=== PATIENT | female | born 1960 ===

== ENCOUNTER 2024-09-26 09:17 | Outpatient (AMB) | payer OTHER, SELFPAY ==
--- NOTE | 2024-09-26 09:32 | A.OFFVIS_ITS ---
Vital Signs 3 09/26/24 09:34 Height 5 ft 3 in Weight 177 lb 0.499 oz BMI 31.4 BP 136/84 Blood Pressure Location Lt brachial Position Sitting Pulse 65 Pulse Source Pulse Oximeter Pulse Oximetry (%) 98 Oxygen Delivery Method Room Air Intake Visit Reasons: Thyroid nodule Intake Note: New patient present today for Thyroid Nodule. Hand Wood Sander Required: No Accompanied by: Self / Same As Patient Allergies Sulfa (Sulfonamide Antibiotics) Allergy (Unknown, Verified 09/26/24 09:35) Rash Medication List - Last Reconciled 09/26/24 by Faina Flowers MD cetirizine (Zyrtec) 10 mg PO DAILY PRN doxepin 50 mg PO BEDTIME fluocinonide 0.05% 1 appl topical BID hydroxyzine HCl 25 mg PO BID PRN metoprolol succinate ER 50 mg PO DAILY tacrolimus 0.1% 1 appl topical BID triamcinolone acetonide 0.1% 1 appl topical DAILY HPI Comments Details: 64-year-old female here today for initial evaluation of right-sided thyroid nodule. 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 No prior history of thyroid disease or disorders . Patient currently denies heat or cold intolerance, diarrhea or constipation, hair loss, palpitation, anxiety, weight changes, mood changes, low energy, changes in appearance of eyes or vision changes, tremors, increased diaphoresis or dry skin. ? Patient denies any difficulty swallowing, pain on swallowing or voice changes or difficulty breathing. Patient denies any history of childhood neck radiation. Denies having ever used lithium, amiodarone or biotin supplements. Patient denies any family history of thyroid cancer or thyroid disease. Physical exam General: sitting comfortably in no acute distress HEENT: normocephalic/atraumatic, EOM intact, moist oral mucosa Neck: supple, symmetrical, no thyromegaly , no dorsocervical or supraclavicular fat pads Cardiac: normal heart sounds Pulm: normal breath sounds B/L, no added breath sounds Abd: not distended, no tenderness Extremities: no edema, no signs of myxedema ON LICENSE OF [facility] Medical History (Updated 09/26/24 @ 10:11 by Faina Flowers MD) Thyroid nodule Surgical History Hx of knee surgery Family History Mother Diabetes Father Liver cancer Social History Alcohol intake: never Patient Tobacco Use Status: Never used Tobacco Physical Exam Vital Signs: Last Vital Signs Pulse 65 09/26/24 09:34 BP 136/84 09/26/24 09:34 Pulse Ox 98 09/26/24 09:34 Oxygen Delivery Method Room Air 09/26/24 09:34 BMI result Body Mass Index 31.4 Assessment & Plan Assessment & Plan (1) Thyroid nodule: Code(s): E04.1 - Nontoxic single thyroid nodule Category: Medical Plan: 64-year-old female with no family history of thyroid cancer, with no personal history of head or neck radiation who had a PET-CT in July 2024 for 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 She does not have a dedicated ultrasound thyroid. No compressive symptoms. No TFTs in the chart. No prior history of thyroid disease or disorders . I explained that it is common to have thyroid nodules. About 95% of the time these nodules are benign. However if the nodule is > 1 cm in size or suspicious on ultrasound then a fine need aspiration biopsy is recommended. At this time I would like to get a dedicated thyroid ultrasound as well as thyroid function tests. Focal FDG PET uptake within a sonographically confirmed thyroid nodule conveys and increased risk of thyroid cancer and FNA is recommended for those nodules greater than 1 cm. Diffuse uptake with clinical evidence of chronic lymphocytic thyroiditis does not require further imaging or FNA. Given focal incidental detection of increased uptake, which increases malignancy risk and ineffective nodule, we will 1st obtain dedicated thyroid imaging and plan for FNA depending on the size of the nodule. Plan: -ordered ultrasound of the thyroid -ordered TSH, free T4, total T3 -follow up in 5 weeks to discuss results Plan see above Orders: Orders 2 Thyroid Stimulating Hormone Today E04.1 - Nontoxic single thyroid nodule Free T4 (Free Thyroxine) Today E04.1 - Nontoxic single thyroid nodule Triiodothyronine T3 Total Today E04.1 - Nontoxic single thyroid nodule US thyroid Today E04.1 - Nontoxic single thyroid nodule Patient Instructions: Do blood work Do thyroid ultrasound , someone is going to call you to schedule this Follow up in 5 weeks to discuss results Coding Level of Care Code New Pt Level 4 (67308) Diagnoses Thyroid nodule E04.1
[2024-09-26 09:34] VITALS: BP 136/84; PULSE 65; O2SAT 98; BMI 31.4
--- OUTSIDE RECORDS SUMMARY | 2024-09-26 10:54 | XMS_ITS | Encounter Summary ---
Author Organization [facility] Address [address] [place] [address] Care Team Providers Care Certified Medical Assistant Name Role Phone Unavailable Primary Care Provider Unavailabl e Reason for Visit * Reason Onset Date Comments Prior Authorization 09/03/2024 Encounter Details Date Type Department Care Team (Late st Contact Info) Description 09/03/2024 Telephone [facility] 4th Floor [address] [facility], [place] [address] Analog Device Designer: Ana Laura Garrett Prior Authorization Social History Tobacco Use Types Packs/Day Years Used Date Smoking Tobacco: Never Assessed Comments Unknown Sex and Gender Information Value Date Recorded Sex Assigned at Female 05/21/2024 10:30 AM EST Legal Sex Female 2:04 PM EDT Gender Identity Female 05/21/2024 10:30 AM EST Sexual Orientation Choose not to disclose 2023 10:30 AM EST Sexual Orientation Straight 05/21/2024 10 :30 AM EST documented as of this encounter Miscellaneous Notes * Telephone Encounter - Jennie Holloway CPhT - 09/09/2024 3:21 PM EDT Images from the original note were not included. Prior Authorization Medication name: Acitretin 25 mg Capsule PA Status: Approved Effective dates: 07-03-2024 through 09-09-2025 PA Case ID: N/A 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 Card has been flipped to In Progress-PA Requested. ? documented in this encounter Plan of Treatment Upcoming Encounters Date Type Department Care Team (Late st Contact Info) Description 10/22/2024 1:00 PM EDT Office Visit [facility] [address]th [address] [place] [address], [place] [phone] Analog Device Designer: Jose Etienne MD [address] [place] [phone] documented as of this encounter Visit Diagnoses Not on filedocumented in this encounter
--- OUTSIDE RECORDS SUMMARY | 2024-09-26 10:54 | XMS_ITS | Encounter Summary ---
Author Organization [facility] Address [address] [place] [address] Care Team Providers Care Category Analyst Name Role Phone Unavailable Primary Care Provider Unavailabl e Reason for Visit * Reason Onset Date Comments PAC Form/Letter/Records Request-Caterina Encounter Details Date Type Department Care Team (Late st Contact Info) Description 09/02/2024 Telephone [facility] 4th [address] [place] [address], Fourth [place] [address] Casino Floor Supervisor: Sumaya Price Telephone Intake, Staff PAC Form/Letter/Records Request-Caterina Social History Tobacco Use Types Packs/Day Years [...] encounter Miscellaneous Notes * Telephone Encounter - Soila Seymour LPN - 09/06/2024 2:33 PM EST PET results faxed to [phone] as requested, to PCP Dr. Marks. * Telephone Encounter - Juliann Domingo - 09/02/2024 3:56 PM EST Images from the original note were not included. Can you resend please? PAC got a call from PCP office Result Care Coordination Result Notes Marquisearistides TIGIST Nation 07/17/2024 11:02 AM EST Back to Top PET scan results faxed successfully to pt PCP Dr. Dio Diaz . Called to Dr. Diaz office to relay provider message regarding PET scan results. , unable to relay message,on hold for an extended time of 18 minutes and got a voicemail. Voicemail left with call back number. * Telephone Encounter - Renetta Way - 09/02/2024 2:52 PM EST Pts pcp office calling to get notes from pt recent PET scan and would like notes faxed to [phone]. documented in this encounter Plan of Treatment Upcoming Encounters Date Type Department Care Team (Late st Contact Info) Description 10/22/2024 1:00 PM EDT Office Visit [facility] 4th Floor [address] [facility], [place] [address] Casino Floor Supervisor: Jose Etienne MD [address] [place] [phone] documented as of this encounter Visit Diagnoses Not on filedocumented in this encounter
--- OUTSIDE RECORDS SUMMARY | 2024-09-26 10:54 | XMS_ITS | Encounter Summary ---
Author Organization [facility] Address [address] [place] [address] Care Team Providers Care Track Superintendent Name Role Phone Emily Dio Primary Care Provider [phone] Encounter Details Date Type Department Care Team (Late st Contact Info) Description 07/17/2024 Telephone [facility] 4th Floor [address] [facility], [place] [address] Blocker And Sewer: Ligia Mock LPN Social History Tobacco Use Types Packs/Day Years [...] Telephone Encounter - Soila Seymour LPN - 08/30/2024 11:[address] Diaz form PCP status, Dr. Marks presently listed as PCP. * Telephone Encounter - Soila Seymour LPN - 08/29/2024 1:55 PM EST Call to Dr. Diaz office, Dr. Diaz is local derm, not PCP. PCP is Dr. Marks. Spoke with office staff at Dr. Marks's office, PET scan results faxed, message provided as aforementioned. * Telephone Encounter - Suzanne Carrizales LPN - 08/29/2024 1:53 PM EST Images from the original note were not included. Morgan Marks PCP - RTE Returned Since 01/09/2024 This is pt's PCP. I called and spoke to nurse there. They are unaware. Faxing to [phone] Dr. Diaz is a seo executive. * Telephone Encounter - Rachna Spain MD - 08/23/2024 8:16 AM EST [facility] -- following up on this--was anyone able to touch base with a staff member of her PCP office? * Telephone Encounter - Rachna Spain MD - 07/26/2024 7:38 AM EST [facility], could someone try PCP office again to relay the following message to the care teamof her PCP: Farida's PET scan is negative for internal involvement of her mycosis fungoides, however, did pick upon a thyroid nodule that needs further workup, and we are referring her to the primary care physician to direct further assessment/management of this. Please document as TE. Thanks! * Telephone Encounter - Ligia Nation LPN - 07/17/2024 10:54 AM EST PET scan results faxed successfully to pt PCP Dr. Dio Diaz . Called to Dr. iDaz office to relay provider message regarding PET scan results. , unable to relay message,on hold for an extended time of 18 minutes and got a voicemail. Voicemail left with call back number. notified. documented in this encounter Plan of Treatment Upcoming Encounters Date Type Department Care Team (Late st Contact Info) Description 10/22/2024 1:00 PM EDT Office Visit [facility] 4th Floor [address] [facility], [place] [address] Blocker And Sewer: Jose Etienne MD [address] [place] [address] documented as of this encounter Visit Diagnoses Not on filedocumented in this encounter Care Teams Track Superintendent Relationship Specialty Start Date End Date Emily Dio [address] [place] [address] PCP - General 12/20/23 08/29/24 documented as of this encounter
--- OUTSIDE RECORDS SUMMARY | 2024-09-26 10:55 | XMS_ITS | Encounter Summary ---
Author Organization [facility] Address [address] [place] [address] Care Team Providers Care Ops Analyst Name Role Phone Dio Diaz Primary Care Provider [phone] Encounter Details Date Type Department Care Team (Late st Contact Info) Description 02/26/2024 Lab Requisition [facility] [address] [place] [phone] Rachna Spain MD [address] [place] [address] [place] [address] Social History Tobacco Use Types Packs/Day Years [...] as of this encounter Miscellaneous Notes * Result Encounter Note - Rachna Spain MD - 03/06/2024 12:00 PM EDT Called and spoke with patient's daughter. Informed her that on internal review of prior biopsy obtained with [facility] dermatology, our pathologists agree with diagnosis of mycosis fungoides, and clinically we also agree with this diagnosis. Discussed routine labwork - order placed for CBC+diff, CMP, LDH, flow cytometry, HTLV-1/2 abs, to [facility]. Plan is to proceed with topical mechlorethamine 0.016 % gel + clobetasol as discussed previously, daughter has been in touch with specialty pharmacy andmed will be delivered Mar 12. Reminded on risk of teratogenicity if daughter or others are helping mom with applying cream, reminded to use gloves when applying and wash hands afterwards. All questions answered. They are not yet scheduled for follow-up, messaged ASR documented in this encounter Plan of Treatment Upcoming Encounters Date Type Department Care Team (Late st Contact Info) Description 10/22/2024 1:00 PM EDT Office Visit [facility] 4th Floor [address] [facility], [place] [address] Social Service Worker: Jose Etienne MD [address] [place] [phone] documented as of this encounter Procedures * Due to [facility] law, this organization might not be sharing negative HIV tests. Procedure Name Priority Date/Time Associated Diagnosis Comments TISSUE EXAM Routine 02/26/2024 3:45 PM EDT documented in this encounter Results * Due to [facility] law, this organization might not be sharing negative HIV tests. * Tissue Exam (02/26/2024 3:45 PM EDT) Final Diagnosis Review of Outside Slides Received from [place] Tissue Issue Labeled [id number] Procedure Date 11/28/2043: Specimen #1 - Skin, Right Lateral, Shave Biopsy (A): - Epidermis with spongiosis, focal parakeratosis and intraepidermal and dermal T-cell infiltrate. Specimen #2 - Skin, Right Lateral Chest, Shave Biopsy (B): - Epidermis with spongiosis, langerhans cell microabscesses and intraepidermal and dermal T-cell infiltrate. Note: Both biopsies show similar findings. Submitted immunohistochemical stains show that the lymphocytic infiltrate is composed mostly of CD3+ T cells with rare CD 20+ B cells. A subset of CD30 cells also present. Per report T cell gene rearrangement studies were done on blocks A&B showing clonal clonal peaks present at 192 and 194 /195 bases. This peak(s) is consistent with that seen in a prior specimen from this patient (please see [id number], obtained 09/01/2023, not available for review). 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 Clinico-pathologic correlation is recommended. This case was reviewed at the dermatopathology division consensus conference. [facility] 4 2:01 PM EDT Remote Assistant [facility] at 1401 EDT Clinical History NA [facility] 4 2:01 PM EDT Remote Assistant [facility] Gross Consult Client Facility: [facility] Slide Identification: [id number] Number of Glass Slides Received: 10 Number of Blocks Received: 0 Client Pathologist: Toma Natarajan MD Accompanying Report Received: yes [facility] 4 2:01 PM EDT Remote Assistant [facility] Best Block for Ancillary Studies A1, B1 [facility] 4 2:01 PM EDT Remote Assistant [facility] Embedded Images [facility] 4 2:01 PM EDT Remote Assistant [facility] Resulting Agency Case was signed out at [facility], Department of Pathology, [facility] 3 CLIA [id number] [facility] 4 2:01 PM EDT Remote Assistant [facility] Report Header Surgical Pathology Report ? Case: [id number] ? Authorizing Provider: ??Rachna Spain MD ? Collected: ? 02/26/2024 1545 ? Ordering Location: ? [facility] ? Received: ?02/26/2024 1546 ? [facility] ? Pathologist: ? Alana Wilde MD ? Specimen: ?Skin, Right Lateral Back ? 4 2:01 PM EDT [employer] [facility] Tissue Specimen from skin / Unknown 02/26/2024 3:45 PM EDT 02/26/2024 3:46 PM EDT us Rachna Spain MD LAB PATHOLOGY/CYTOLOGY ORDER ABELARDO Final Result [employer] [facility] [address] [place] [address], documented in this encounter Visit Diagnoses Not on filedocumented in this encounter Care Teams Ops Analyst Relationship Specialty Start Date End Date RamírezDio panda [address] [place] [phone] PCP - General 12/20/23 08/29/24 documented as of this encounter
--- OUTSIDE RECORDS SUMMARY | 2024-09-26 10:55 | XMS_ITS | Referral Summary ---
Author Organization [facility] Address [address] [place] [address] Care Team Providers Care Manager Material Name Role Phone Unavailable Primary Care Provider Unavailabl e Encounters Date Type Department Care Team Description 09/03/2024 Telephone [facility] [address] [place] [phone] Valve Tester: Ana Laura Garrett Prior Authorization 09/02/2024 Telephone [facility] [address] [place] [phone] Valve Tester: Sumaya Price Telephone Intake, Staff PAC Form/Letter/Records Request-Caterina 07/17/2024 Telephone [facility] [address] [phone] Valve Tester: Ligia Mock LPN 07/01/2024 Telephone [facility] [address] [place] [phone] Valve Tester: Rachna Lopez MD PAC General Info from Last 3 Months Allergies Active Allergy Reactions Criticality Noted Date Comments Sulfadiazine Rash 02/20/2024 Medications metoprolol ta-hydrochloroth iaz (LOPRESSOR HCT) 50-25 mg per tablet SMARTSI.5 Tablet(s) By Mouth Daily Active clobetasoL (TEMOVATE) 0.05% creamIndications :Mycosis fungoides, unspecified body region (HCC) Apply daily to rash until follow-up. Avoid face, groin, and armpit. 60 g 3 4 Active Valchlor 0.016 % gelIndications:M ycosis fungoides, unspecified body region (HCC) APPLY A THIN FILM TO AFFECTED AREA AT NIGHT EVERY THIRD NIGHT FOR 2 WEEKS, THEN EVERY OTHER NIGHT FOR 2 WEEKS, THEN NIGHTLY. 60 g 1 4 Active acitretin (SORIATANE) 25 mg capsuleIndicatio ns:Mycosis fungoides, unspecified body region (HCC) Take 1 capsule (25 mg total) by mouth once a day. 30 capsule 3 09/10/2024 3:19 PM EDT 4 10/11/19 25 Active Active Problems No known active problems Social History Tobacco Use Types Packs/Day Years Used Date Smoking Tobacco: Never Assessed Comments Unknown Sex and Gender Information Value Date Recorded Sex Assigned at Female 05/21/2024 10:30 AM EST Legal Sex Female 2:04 PM EDT Gender Identity Female 05/21/2024 10:30 AM EST Sexual Orientation Choose not to disclose 2023 10:30 AM EST Sexual Orientation Straight 05/21/2024 10 :30 AM EST Plan of Treatment Upcoming Encounters Date Type Department Care Team (Late st Contact Info) Description 10/22/2024 1:00 PM EDT Office Visit [facility] [address] [place] [address], [place] [phone] Valve Tester: Jose Etienne MD [address] [place] [address] Procedures * Due to [place] [employer] law, this organization might not be sharing negative HIV tests. Procedure Name Priority Date/Time Associated Diagnosis Comments PET/CT WHOLE BODY Routine 07/08/2024 9:0 0 AM EST Mycosis fungoides, unspecified body region from Last 3 Months Results * Due to [place] [employer] law, this organization might not be sharing negative HIV tests. * PET Whole Body (07/08/2024 9:00 AM EST) Anatomical Region Laterality Modality Magnetic Resonan ce 07/08/2024 8:20 AM EST Narrative 07/08/2024 10:05 PM EST [facility] PET/CT Imaging Accession Number: [id number] Patient Name: Shima Clayton Date of : 1960 Date of Exam: 07-08-2024 Referring Physician: Jose Cassidy ?[address] [place] [address] ?[place] [address] Exam: PT Whole Body CPT 82602 Room Description: [facility] Pt4 Positron emission tomography and CT dated July 08, 2024. No prior studies are available. HISTORY: Hematologic malignancy area mycosis fungoides. PET technique: Today's study was performed with the intravenous infusion of 11.9 mCi of F-18-FDG. Imaging was performed 0 hour, 54 minutes, and 15 seconds following the infusion. Body mass was used to normalize the SUV. The blood glucose at the time of the injection was 106 mg/dL. Uptake in the liver has a peak SUV of 3.3 and uptake in the ascending aorta has a peak SUV of 2.7. Imaging was performed from the base of the top of the head to the bottom of the feet with axial, coronal, sagittal, and 3-D reconstruction performed on an independent workstation. There is an intense focus of increased metabolic activity correlating with a focus of decreased attenuation in the lower pole of the right thyroid with a peak SUV of 15.9 and image #55. There is some increased metabolic activity associated with a total knee arthroplasty on the right. This can be seen with loosening or infection. No other abnormal focus of increased metabolic activity is appreciated. IMPRESSION: Increased metabolic activity in the right lobe of the thyroid. The differential diagnosis could include a toxic nodule. Infection would have to be considered within the differential diagnosis as well as thyroid neoplasm. Increased metabolic activity in the right knee associated with a total knee arthroplasty suspicious for loosening or infection. The differential diagnosis could include a healing total knee arthroplasty if the joint has been replaced within the last 3-6 months. Examination [address]. Thank you for allowing me to participate in the care of your patient. Electronically Signed By: Nigel Patino MD Procedure Note Provider, Solorzano - 07/08/2024 [facility] PET/CT Imaging Accession Number: [id number] Patient Name: Shima Clayton Date of : 1960 Date of Exam: 07-08-2024 Referring Physician: Jose Cassidy [address] [place] [address] Exam: PT Whole Body CPT 85759 Room Description: [facility] Pt4 Positron emission tomography and CT dated July 08, 2024. No prior studies are available. HISTORY: Hematologic malignancy area mycosis fungoides. PET technique: Today's study was performed with the intravenous infusion of 11.9 mCi of F-18-FDG. Imaging was performed 0 hour, 54 minutes, and 15 seconds following the infusion. Body mass was used to normalize the SUV. The blood glucose at the time of the injection was 106 mg/dL. Uptake in the liver has a peak SUV of 3.3 and uptake in the ascending aorta has a peak SUV of 2.7. Imaging was performed from the base of the top of the head to the bottom of the feet with axial, coronal, sagittal, and 3-D reconstruction performed on an independent workstation. There is an intense focus of increased metabolic activity correlating with a focus of decreased attenuation in the lower pole of the right thyroid with a peak SUV of 15.9 and image #55. There is some increased metabolic activity associated with a total knee arthroplasty on the right. This can be seen with loosening or infection. No other abnormal focus of increased metabolic activity is appreciated. IMPRESSION: Increased metabolic activity in the right lobe of the thyroid. The differential diagnosis could include a toxic nodule. Infection would have to be considered within the differential diagnosis as well as thyroid neoplasm. Increased metabolic activity in the right knee associated with a total knee arthroplasty suspicious for loosening or infection. The differential diagnosis could include a healing total knee arthroplasty if the joint has been replaced within the last 3-6 months. Examination 34580. Thank you for allowing me to participate in the care of your patient. Electronically Signed By: Nigel Patino MD Jose Cassidy MD IMG MRI PROCEDURES Final Resul t from Last 3 Months Insurance [facility]
--- OUTSIDE RECORDS SUMMARY | 2024-09-26 10:55 | XMS_ITS | Clinical Summary ---
Author Organization [facility] Address [address] [place] [address] Care Team Providers Care Log Peeler Name Role Phone Unavailable Primary Care Provider Unavailabl e Allergies Active Allergy Reactions Criticality Noted Date Comments Sulfadiazine Rash 02/20/2024 Medications metoprolol ta-hydrochloroth iaz (LOPRESSOR HCT) 50-25 mg per tablet SMARTSI.5 Tablet(s) By Mouth Daily 4 Active clobetasoL (TEMOVATE) 0.05% creamIndications :Mycosis fungoides, [...] Active Active Problems No known active problems Encounters Date Type Department Care Team Description 09/03/2024 Telephone [facility] 4th Floor [address] [place] [phone] Naturopath: Ana Laura Garrett Prior Authorization 09/02/2024 Telephone [facility] [address] [phone] Naturopath: Sumaya Price Telephone Intake, Staff PAC Form/Letter/Records Request-Caterina 07/17/2024 Telephone [facility] [address] [phone] Naturopath: Ligia Mock LPN 07/01/2024 Telephone [facility] [address] [place] [phone] Naturopath: Rachna Lopez MD PAC General Info from Last 3 Months Social History Tobacco Use Types Packs/Day Years [...] Description 10/22/2024 1:00 PM EDT Office Visit [facility] [address] [place] [phone] Naturopath: Jose Etienne MD [address] [place] [phone] Health Maintenance Due Date Last Done Comments Cervical Cancer Screening 1960 Cologuard 1960 Colon Cancer Screening 1960 Colonoscopy 1960 FOBT / Fit Test 1960 HIV Screening 1960 HPV and Pap Smear 1960 Hepatitis C Screening 1960 Pap Smear 1960 Sigmoidoscopy 1960 COVID-19 Vaccine (#1) 1964 Pneumococcal Vaccine: 50+ Years (1 of 2 - PCV) 1978 DTaP,Tdap,and Td Vaccines (1 - Tdap) 1981 Mammogram 1999 Osteoporosis Screening 2009 Zoster Vaccines (2 of 2) 07/08/2018 05/13/2018 Alcohol/Substance Use Screening 07/03/2024 Depression Screening and Follow-Up 07/03/2024 Health Care Proxy Review 07/03/2024 Social Drivers of Health Annual Screening 07/03/2024 RSV Vaccine (60+ years old and patients) (1 - 1-dose 75+ series) 2034 Influenza Vaccine Completed 05/07/2024, , 04/23/2022, Additional history exists Hepatitis B Vaccines Aged Out No long er eligible based on patient's age to complete this topic Procedures * Due to [place] [employer] law, this organization might not be sharing negative HIV tests. Procedure Name Priority Date/Time Associated Diagnosis Comments PET/CT WHOLE BODY Routine 07/08/2024 9:0 0 AM EST Mycosis fungoides, unspecified body region from Last 3 Months Results * Due to [place] [employer] law, this organization might not be sharing negative HIV tests. * PET Whole Body (07/08/2024 9:00 AM EST) Anatomical Region Laterality Modality Magnetic Resonan ce 07/08/2024 8:20 AM EST Narrative 07/08/2024 10:05 PM EST [facility] PET/CT Imaging Accession Number: [id number] Patient Name: Shima Clayton Date of : 1960 Date of Exam: 07-08-2024 Referring Physician: Jose Cassidy ?[address] [place] [address] ?[place], [place] [address] Exam: PT Whole Body CPT 18815 Room Description: [facility] Pt4 Positron emission tomography and CT [...] replaced within the last 3-6 months. Examination 42618. Thank you for allowing me to participate in the care of your patient. Electronically Signed By: Nigel Patino MD Procedure Note Provider, Jeanine - 07/08/2024 [facility] PET/CT Imaging Accession Number: [id number] Patient Name: Shima Clayton Date of : 1960 Date of Exam: 07-08-2024 Referring Physician: Jose Cassidy [address] [place] [phone] Exam: PT Whole Body CPT 15712 Room Description: [facility] Pt4 Positron emission tomography and CT [...] replaced within the last 3-6 months. Examination 74634. Thank you for allowing me to participate in the care of your patient. Electronically Signed By: Nigel Patino MD Jose Cassidy MD IMG MRI PROCEDURES Final Resul t from Last 3 Months Insurance [facility]
== END 2024-09-26 10:17 | disposition home or self-care (01) ==
LOC: HO.ENCR 09:18
PROVIDERS: PCP Internal Medicine; Visit Provider Student in an Organized Health Care Education/Training Program
DX: E04.1 Nontoxic single thyroid nodule (principal)
CPT/HCPCS: 99204

== ENCOUNTER 2024-09-26 09:17 | Outpatient (REF) | payer OTHER, SELFPAY ==
[2024-09-26 12:20] LABS: Free T4 (Free Thyroxine) 1.01 ng/dL (0.71-1.85); Thyroid Stimulating Hormone 1.88 uIU/mL (0.32-4.0)
[2024-09-27 09:29] LABS: Triiodothyronine T3 Total 109 ng/dL (76-181)
== END 2024-09-26 09:18 | disposition home or self-care (01) ==
LOC: HO.LAB 09:17
PROVIDERS: PCP Internal Medicine; Visit Provider Student in an Organized Health Care Education/Training Program
DX: E04.1 Nontoxic single thyroid nodule (principal)
CPT/HCPCS: 36415; 84439; 84443; 84480; 99202

== ENCOUNTER 2024-10-11 09:27 | Outpatient (REF) | payer OTHER, SELFPAY ==
--- NOTE | ~2024-10-11 | US_ITS ---
EXAMINATION: US THYROID CLINICAL INFORMATION: Nontoxic single thyroid nodule. COMPARISON: None available. TECHNIQUE: Linear transducer grayscale and color Doppler examination with attention to the region of the thyroid. FINDINGS: SIZE: Measurements of the thyroid lobes and nodules are given in sagittal, anteroposterior and transverse dimensions respectively. Right Thyroid Lobe: 4.5 x 2.5 x 1.4 cm, volume 8.3 mL. Parenchyma: The gland echotexture is homogeneous. Thyroid vascularity is normal. Left Thyroid Lobe: 4.5 x 1.6 x 1.7 cm, volume 6.1 mL. Parenchyma: The gland echotexture is homogeneous. Thyroid vascularity is normal. Isthmus: 0.3 cm in maximum AP dimension. Estimated total number of nodules greater than or equal to 1 cm: 2. Private Investigator Surveillance nodules are described as follows: 1. Location: Right mid to lower pole. Size: 1.7 x 1.8 x 1.6 cm, volume 2.6 mL. Nodule characteristics: Composition: Solid (2). Echogenicity: Hypoechoic (2). Shape: Taller than wide (3). Margins: Smooth (0). Echogenic Foci: None (0). ACR TI-RADS total points: 7 ACR TI-RADS category: 5 2. Location: Right mid pole. Size: 1.0 x 0.5 x 0.9 cm, volume 0.26 mL. Nodule characteristics: Composition: Solid (2). Echogenicity: Isoechoic (1). Shape: Not taller than wide (0). Margins: Smooth (0). Echogenic Foci: None (0). ACR TI-RADS total points: 3 ACR TI-RADS category: 3 There are 3 additional tiny subcentimeter benign TR category 1 nodules in the right isthmus, and right upper thyroid. NODES: No lymphadenopathy is seen in the tissue surrounding the thyroid gland. US/US thyroid IMPRESSION: 1. There is a 1.8 cm TR category 5 nodule in the right lower pole. FNA recommended. 2. There is a 1.0 cm TR category 3 nodule in the right midpole. No follow-up recommended. 3. There are 3 additional tiny TR category 1 subcentimeter nodules in the right isthmus and upper right thyroid. These are benign. 4. Surrounding thyroid parenchyma is normal. ACR TI-RADS RECOMMENDATION REFERENCE: Ultrasound-guided fine-needle aspiration, followup ultrasound, no further follow up. * TR1 (0 point) and TR2 (2 points): No FNA or follow up. * TR3 (3 points): FNA if more than or equal to 2.5 cm in maximum dimension, followup ultrasound in 1, 3 and 5 years if 1.5 to 2.4 cm in maximum dimension. * TR4 (4-6 points): FNA if more than or equal to 1.5 cm in maximum dimension, followup ultrasound in 1, 2, 3 and 5 years if 1 to 1.4 cm in maximum dimension. * TR5 (more than or equal to 7 points): FNA if more than or equal to 1 cm in maximum dimension, followup ultrasound every year for 5 years if 0.5 to 0.9 cm in maximum dimension. * TR3, TR4 or TR5 nodules that are below the size threshold for followup receive no follow up. Electronically signed by: Jose Barron MD 10/11/2024 12:08 PM [facility]
== END 2024-10-11 09:28 | disposition home or self-care (01) ==
LOC: HO.HMGCX 09:27
PROVIDERS: PCP Internal Medicine; Visit Provider Student in an Organized Health Care Education/Training Program
DX: E04.1 Nontoxic single thyroid nodule (principal)
CPT/HCPCS: 76536

== ENCOUNTER → 2024-10-11 09:33 | Outpatient (BNV) | payer OTHER, SELFPAY | PROVIDERS: PCP Internal Medicine; Visit Provider Radiology Diagnostic Radiology | DX: E04.2 Nontoxic multinodular goiter (principal) | CPT/HCPCS: 76536 ==

== ENCOUNTER 2024-10-14 08:08 | Outpatient (AMB) | payer OTHER, SELFPAY ==
[2024-10-14 08:20] VITALS: BP 120/70; PULSE 71; O2SAT 97; BMI 31.2
--- NOTE | 2024-10-14 08:20 | MHC.OFFVIS ---
Vital Signs 10/14/24 08:20 Height 5 ft 3 in Weight 175 lb 14.862 oz BMI 31.2 BP 120/70 Blood Pressure Location Rt brachial Position Sitting Pulse 71 Pulse Source Pulse Oximeter Pulse Oximetry (%) 97 Oxygen Delivery Method Room Air Intake Visit Reasons: Thyroid nodule Intake Note: Patient present today for Thyroid nodule office visit. Coal And Ash Supervisor Required: No Accompanied by: Self / Same As Patient Allergies Sulfa (Sulfonamide Antibiotics) Allergy (Unknown, Verified 10/14/24 08:23) Rash HPI Comments Details: 64-year-old female here today for initial evaluation of right-sided thyroid nodule. 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 No prior history of thyroid disease or disorders . Patient currently denies heat or cold intolerance, diarrhea or constipation, hair loss, palpitation, anxiety, weight changes, mood changes, low energy, changes in appearance of eyes or vision changes, tremors, increased diaphoresis or dry skin. ? Patient denies any difficulty swallowing, pain on swallowing or voice changes or difficulty breathing. Patient denies any history of childhood neck radiation. Denies having ever used lithium, amiodarone or biotin supplements. Patient denies any family history of thyroid cancer or thyroid disease. Interval history Ultrasound thyroid 10/11/2024: I reviewed the images myself that showed a dominant right mid to lower 1.8 cm solid, hypoechoic, taller than wide TR 5 category nodule which meets criteria for FNA. Another right midpole 1 cm solid, isoechoic TR 3 category nodule noted. Other subcentimeter spongiform appearing nodules noted in the right and left lobe . Physical exam General: sitting comfortably in no acute distress HEENT: normocephalic/atraumatic, EOM intact, moist oral mucosa Neck: supple, symmetrical, no thyromegaly , no dorsocervical or supraclavicular fat pads Cardiac: normal heart sounds Pulm: normal breath sounds B/L, no added breath sounds Abd: not distended, no tenderness Extremities: no edema, no signs of myxedema Laboratory Tests 09/26/24 10:42 TSH 1.88 Free T4 1.01 Total T3 109 US 10/11/24 THYROID CLINICAL INFORMATION: Nontoxic single thyroid nodule. COMPARISON: None available. TECHNIQUE: Linear transducer grayscale and color Doppler examination with attention to the region of the thyroid. FINDINGS: SIZE: Measurements of the thyroid lobes and nodules are given in sagittal, anteroposterior and transverse dimensions respectively. Right Thyroid Lobe: 4.5 x 2.5 x 1.4 cm, volume 8.3 mL. Parenchyma: The gland echotexture is homogeneous. Thyroid vascularity is normal. Left Thyroid Lobe: 4.5 x 1.6 x 1.7 cm, volume 6.1 mL. Parenchyma: The gland echotexture is homogeneous. Thyroid vascularity is normal. Isthmus: 0.3 cm in maximum AP dimension. Estimated total number of nodules greater than or equal to 1 cm: 2. Fire Fighters Dispatcher nodules are described as follows: 1. Location: Right mid to lower pole. Size: 1.7 x 1.8 x 1.6 cm, volume 2.6 mL. Nodule characteristics: Composition: Solid (2). Echogenicity: Hypoechoic (2). Shape: Taller than wide (3). Margins: Smooth (0). Echogenic Foci: None (0). ACR TI-RADS total points: 7 ACR TI-RADS category: 5 2. Location: Right mid pole. Size: 1.0 x 0.5 x 0.9 cm, volume 0.26 mL. Nodule characteristics: Composition: Solid (2). Echogenicity: Isoechoic (1). Shape: Not taller than wide (0). Margins: Smooth (0). Echogenic Foci: None (0). ACR TI-RADS total points: 3 ACR TI-RADS category: 3 There are 3 additional tiny subcentimeter benign TR category 1 nodules in the right isthmus, and right upper thyroid. NODES: No lymphadenopathy is seen in the tissue surrounding the thyroid gland. US/US thyroid IMPRESSION: 1. There is a 1.8 cm TR category 5 nodule in the right lower pole. FNA recommended. 2. There is a 1.0 cm TR category 3 nodule in the right midpole. No follow-up recommended. 3. There are 3 additional tiny TR category 1 subcentimeter nodules in the right isthmus and upper right thyroid. These are benign. 4. Surrounding thyroid parenchyma is normal. [facility] Medical History (Updated 09/26/24 @ 10:11 by Faina Flowers MD) Thyroid nodule Surgical History Hx of knee surgery Family History Mother Diabetes Father Liver cancer Social History Alcohol intake: never Patient Tobacco Use Status: Never used Tobacco Physical Exam Vital Signs: Last Vital Signs Pulse 71 10/14/24 08:20 BP 120/70 10/14/24 08:20 Pulse Ox 97 10/14/24 08:20 Oxygen Delivery Method Room Air 10/14/24 08:20 BMI result Body Mass Index 31.2 Assessment & Plan Assessment & Plan (1) Thyroid nodule: Code(s): E04.1 - Nontoxic single thyroid nodule Category: Medical Plan: 64-year-old female with no family history of thyroid cancer, with no personal history of head or neck radiation who had a PET-CT in July 2024 for 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 No prior history of thyroid disease or disorders . Focal FDG PET uptake within a sonographically confirmed thyroid nodule conveys and increased risk of thyroid cancer and FNA is recommended for those nodules greater than 1 cm. Diffuse uptake with clinical evidence of chronic lymphocytic thyroiditis does not require further imaging or FNA. Given focal incidental detection of increased uptake, which increases malignancy risk and ineffective nodule, we will 1st obtain dedicated thyroid imaging and plan for FNA depending on the size of the nodule. Ultrasound thyroid 10/11/2024: I reviewed the images myself that showed a dominant right mid to lower 1.8 cm solid, hypoechoic, taller than wide TR 5 category nodule which meets criteria for FNA. Another right midpole 1 cm solid, isoechoic TR 3 category nodule noted. Other subcentimeter spongiform appearing nodules noted in the right and left lobe . TFTs normal 09/24 I explained that it is common to have thyroid nodules. About 95% of the time these nodules are benign. However if the nodule is > 1 cm in size or suspicious on ultrasound then a fine need aspiration biopsy is recommended. We discussed that a FNAB involves 4-5 passes with a small gauge needle and material obtained is sent off for cytology.If the cytopathology is benign then the nodule will be followed annually with repeat ultrasounds. However if it is suspicious or malignant, we will need to discuss further management. Indeterminate cytology can be further investigated with repeat FNA, genetic testing or empiric lobectomy. Malignant cytology is managed with either lobectomy or total thyroidectomy. We discussed briefly that thyroid cancer is, in most patients, an indolent disease that does not affect mortality. We will arrange for FNA of the right mid to lower 1.8 cm thyroid nodule at next available opening and patient will follow up with me in clinic thereafter for results and further decision making. Plan: -scheduled for FNA of the right mid/lower 1.8 cm thyroid lobe nodule and a follow up 2 weeks after to discuss results Plan I spent 30 minutes in reviewing the record, seeing the patient and documenting in the medical record. Orders: Orders US biopsy thyroid Today E04.1 - Nontoxic single thyroid nodule Patient Instructions: We will schedule you for a biopsy of your right-sided thyroid nodule and a follow up 2 weeks after to discuss results Coding Level of Care Code Est Pt Level 4 (27785) Diagnoses Thyroid nodule E04.1 Time Spent (min) 30
== END 2024-10-14 08:46 | disposition home or self-care (01) ==
LOC: HO.ENCR 08:09
PROVIDERS: PCP Internal Medicine; Visit Provider Student in an Organized Health Care Education/Training Program
DX: E04.1 Nontoxic single thyroid nodule (principal)
CPT/HCPCS: 99214

== ENCOUNTER → 2024-10-14 08:08 | Outpatient (BNVA) | payer OTHER, SELFPAY | PROVIDERS: PCP Internal Medicine; Visit Provider Student in an Organized Health Care Education/Training Program | DX: E04.1 Nontoxic single thyroid nodule (principal) | CPT/HCPCS: 99212 ==

== ENCOUNTER 2024-10-30 08:25 | Outpatient (REF) | payer OTHER, SELFPAY ==
--- NOTE | 2024-10-30 09:29 | PM.PROC ---
Brief Operative Note Date of procedure: 10/30/24 Pre-op diagnosis: right mid inferior 1.8 cm thyroid nodule FNA biopsy Post-op diagnosis: same Procedure: THYROID FINE NEEDLE ASPIRATION PROCEDURE NOTE ? PROCEDURE PERFORMED: Ultrasound-guided FNA of thyroid nodule ? OPERATORS: Dr. Faina Flowers ? INDICATION: right mid inferior 1.8 cm thyroid nodule ; FNA performed to assess for malignancy ? DESCRIPTION OF PROCEDURE: The indications for FNA (to assess for malignancy) were reviewed with the patient in detail. Potential complications (e.g., bleeding, infection, damage to local structures, absence of clear diagnosis after FNA) were reviewed. Alternatives to FNA including conservative observation or surgery were described. The patient understood and agreed to proceed. This was documented by the signing of the written informed consent form. A time-out was performed to confirm the patient's identity and the site of planned FNA. The nodule of interest was identified using ultrasound (14 MHz linear array probe). The site of FNA was then draped in the usual fashion and carefully cleaned and prepared using alcohol swabs. The skin at the previously-identified site of needle insertion was iced and sprayed with numbing spray. Under ultrasound guidance, _5_ passes were performed using a 1.5-inch, 25-gauge needle, and sample was obtained via capillary action. The needle tip was clearly visualized to be within the nodule at the time of sampling for _5_ of _5_ passes The patient tolerated the procedure well. There were no immediate complications. A small adhesive bandage was applied, and the patient was advised to take acetaminophen (rather than NSAIDs) for any discomfort and to report any signs of inflammation/infection or marked swelling. IMPRESSION: Technically successful ultrasound-guided fine needle aspiration of right mid inferior 1.8 cm thyroid nodule. PLAN: The patient was advised that I will provide follow-up regarding the cytology result and any subsequent plans. Faina Flowers MD Endocrinology Attending Condition: stable Disposition: same day
== END 2024-10-30 08:26 | disposition home or self-care (01) ==
LOC: HO.US 08:25
PROVIDERS: PCP Internal Medicine; Visit Provider Student in an Organized Health Care Education/Training Program
DX: E04.1 Nontoxic single thyroid nodule (principal)
CPT/HCPCS: 10005; 88173; 88305

== ENCOUNTER → 2024-10-30 08:25 | Outpatient (BNV) | payer OTHER, SELFPAY | PROVIDERS: PCP Internal Medicine; Visit Provider Student in an Organized Health Care Education/Training Program | DX: E04.1 Nontoxic single thyroid nodule (principal) | CPT/HCPCS: 10005 ==

== ENCOUNTER 2024-11-20 14:02 | Outpatient (AMB) | payer OTHER, SELFPAY ==
--- NOTE | 2024-11-20 14:20 | A.OFFVIS_ITS ---
Vital Signs 3 11/20/24 14:21 Height 5 ft 3 in Weight 168 lb 3.403 oz BMI 29.8 BP 124/82 Blood Pressure Location Rt brachial Position Sitting Pulse 68 Pulse Source Pulse Oximeter Pulse Oximetry (%) 98 Oxygen Delivery Method Room Air Intake Visit Reasons: Biopsy f/u Intake Note: Patient present today for biopsy results. Keyboarding Teacher Required: No Accompanied by: Self / Same As Patient Allergies Sulfa (Sulfonamide Antibiotics) Allergy (Unknown, Verified 11/20/24 14:24) Rash HPI Comments Details: 64-year-old female here today for follow up of right-sided thyroid nodule. 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 No prior history of thyroid disease or disorders . Patient currently denies heat or cold intolerance, diarrhea or constipation, hair loss, palpitation, anxiety, weight changes, mood changes, low energy, changes in appearance of eyes or vision changes, tremors, increased diaphoresis or dry skin. ? Patient denies any difficulty swallowing, pain on swallowing or voice changes or difficulty breathing. Patient denies any history of childhood neck radiation. Denies having ever used lithium, amiodarone or biotin supplements. Patient denies any family history of thyroid cancer or thyroid disease. Ultrasound thyroid 10/11/2024: I reviewed the images myself that showed a dominant right mid to lower 1.8 cm solid, hypoechoic, taller than wide TR 5 category nodule which meets criteria for FNA. Another right midpole 1 cm solid, isoechoic TR 3 category nodule noted. Other subcentimeter spongiform appearing nodules noted in the right and left lobe . Interval history 10/30/2024: Underwent FNA of the right mid inferior pole 1.8 cm nodule which came back as nondiagnostic, Villalba category 1 Physical exam General: sitting comfortably in no acute distress HEENT: normocephalic/atraumatic, Neck: supple, symmetrical Cardiac: normal heart sounds Pulm: normal breath sounds B/L, no added breath sounds Abd: not distended, no tenderness Extremities: no edema, no signs of myxedema Laboratory Tests 09/26/24 10:42 TSH 1.88 Free T4 1.01 Total T3 109 US 10/11/24 THYROID CLINICAL INFORMATION: Nontoxic single thyroid nodule. COMPARISON: None available. TECHNIQUE: Linear transducer grayscale and color Doppler examination with attention to the region of the thyroid. FINDINGS: SIZE: Measurements of the thyroid lobes and nodules are given in sagittal, anteroposterior and transverse dimensions respectively. Right Thyroid Lobe: 4.5 x 2.5 x 1.4 cm, volume 8.3 mL. Parenchyma: The gland echotexture is homogeneous. Thyroid vascularity is normal. Left Thyroid Lobe: 4.5 x 1.6 x 1.7 cm, volume 6.1 mL. Parenchyma: The gland echotexture is homogeneous. Thyroid vascularity is normal. Isthmus: 0.3 cm in maximum AP dimension. Estimated total number of nodules greater than or equal to 1 cm: 2. Processing Assistant nodules are described as follows: 1. Location: Right mid to lower pole. Size: 1.7 x 1.8 x 1.6 cm, volume 2.6 mL. Nodule characteristics: Composition: Solid (2). Echogenicity: Hypoechoic (2). Shape: Taller than wide (3). Margins: Smooth (0). Echogenic Foci: None (0). ACR TI-RADS total points: 7 ACR TI-RADS category: 5 2. Location: Right mid pole. Size: 1.0 x 0.5 x 0.9 cm, volume 0.26 mL. Nodule characteristics: Composition: Solid (2). Echogenicity: Isoechoic (1). Shape: Not taller than wide (0). Margins: Smooth (0). Echogenic Foci: None (0). ACR TI-RADS total points: 3 ACR TI-RADS category: 3 There are 3 additional tiny subcentimeter benign TR category 1 nodules in the right isthmus, and right upper thyroid. NODES: No lymphadenopathy is seen in the tissue surrounding the thyroid gland. US/US thyroid IMPRESSION: 1. There is a 1.8 cm TR category 5 nodule in the right lower pole. FNA recommended. 2. There is a 1.0 cm TR category 3 nodule in the right midpole. No follow-up recommended. 3. There are 3 additional tiny TR category 1 subcentimeter nodules in the right isthmus and upper right thyroid. These are benign. 4. Surrounding thyroid parenchyma is normal. [facility] Medical History (Updated 09/26/24 @ 10:11 by Faina Flowers MD) Thyroid nodule Surgical History Hx of knee surgery Family History Mother Diabetes Father Liver cancer Social History Alcohol intake: never Patient Tobacco Use Status: Never used Tobacco Physical Exam Vital Signs: Last Vital Signs Pulse 68 11/20/24 14:21 BP 124/82 11/20/24 14:21 Pulse Ox 98 11/20/24 14:21 Oxygen Delivery Method Room Air 11/20/24 14:21 BMI result Body Mass Index 29.8 Assessment & Plan Assessment & Plan (1) Thyroid nodule: Code(s): E04.1 - Nontoxic single thyroid nodule Category: Medical Plan: 64-year-old female with no family history of thyroid cancer, with no personal history of head or neck radiation who had a PET-CT in July 2024 for 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 No prior history of thyroid disease or disorders . Focal FDG PET uptake within a sonographically confirmed thyroid nodule conveys and increased risk of thyroid cancer and FNA is recommended for those nodules greater than 1 cm. Diffuse uptake with clinical evidence of chronic lymphocytic thyroiditis does not require further imaging or FNA. Ultrasound thyroid 10/11/2024: I reviewed the images myself that showed a dominant right mid to lower 1.8 cm solid, hypoechoic, taller than wide TR 5 category nodule which meets criteria for FNA. Another right midpole 1 cm solid, isoechoic TR 3 category nodule noted. Other subcentimeter spongiform appearing nodules noted in the right and left lobe . TFTs normal 09/2410/30/2024: Underwent FNA of the left inferior pole 1.8 cm nodule which came back as nondiagnostic, Villalba category 1. I explained to the patient that nondiagnostic results yield a 5-20% risk of malignancy and especially given that there was increased activity in this area on the PET-CT, we should repeat a biopsy of this nodule. Explained to her that there is a 60-80% chance of getting a diagnostic result on a 2nd try. We will arrange for repeat FNA of the right mid to lower 1.8 cm thyroid nodule in 3 months and patient will follow up with me in clinic thereafter for results and further decision making. Plan: -scheduled for repeat FNA of the right mid/lower 1.8 cm thyroid lobe nodule in 3 months and a follow up 2 weeks after to discuss results Plan See above Orders: Orders 2 US biopsy thyroid Today E04.1 - Nontoxic single thyroid nodule Patient Instructions: We will schedule you for a biopsy of your left-sided thyroid nodule again in 3 months Coding Level of Care Code Est Pt Level 3 (23462) Diagnoses Thyroid nodule E04.1
[2024-11-20 14:21] VITALS: BP 124/82; PULSE 68; O2SAT 98; BMI 29.8
--- OUTSIDE RECORDS SUMMARY | 2024-11-20 14:31 | XMS_ITS | Clinical Summary ---
Author Organization [facility] Address [address] [place] [address] Care Team Providers Care Paper Baling Machine Operator Name Role Phone Morgan Marks Primary Care Provider [phone] Allergies Active Allergy Reactions Criticality Noted Date Comments Sulfadiazine Rash 02/20/2024 Medications metoprolol ta-hydrochlorot hiaz (LOPRESSOR HCT) 50-25 mg per tablet SMARTSI.5 Tablet(s) By Mouth Daily 01/30/20 24 Active Valchlor 0.016 % gelIndications: Mycosis fungoides, unspecified body region (HCC) APPLY A THIN FILM TO AFFECTED AREA AT NIGHT EVERY THIRD NIGHT FOR 2 WEEKS, THEN EVERY OTHER NIGHT FOR 2 WEEKS, THEN NIGHTLY. 60 g 1 05/20/20 24 Active Additional Information Patient not taking.Reported on 10/22/2024 acitretin (SORIATANE) 25 mg capsuleIndicati ons:Mycosis fungoides, unspecified body region (HCC) Take 1 capsule (25 mg total) by mouth once a day. 30 capsule 3 5 9:08 PM EDT 10/02/19 25 025 Active gabapentin (NEURONTIN) 100 mg capsuleIndicati ons:Mycosis fungoides, unspecified body region (HCC) Start with 1 capsule (100mg) nightly. Hold for excess sedation/drows iness. 90 capsule 1 10/23/19 25 Active clobetasoL (TEMOVATE) 0.05% ointmentIndicat ions:Mycosis fungoides, unspecified body region (HCC) Apply topically to the affected area 2 times a day. Apply twice daily for rash up to 2 weeks at a time, then take 1 week off. Avoid face, groin, and armpit. 60 g 3 10/23/19 25 Active clobetasoL (TEMOVATE) 0.05% creamIndication s:Mycosis fungoides, unspecified body region (HCC) Apply twice daily for rash up to 2 weeks at a time, then take 1 week off. Avoid face, groin, and armpit. 60 g 3 10/23/19 25 025 Discontinued Active Problems No known active problems Encounters Date Type Department Care Team Description 10/25/2024 Results Follow-Up [facility] 4th [address] [place] [phone] Opal Polisher: Rachna Lopez MD 10/22/2024 1:30 PM EDT Office Visit [facility] [address] [phone] Opal Polisher: Jose Etienne MD Mycosis fungoides, unspecified body region (HCC) (Primary Dx) 10/08/2024 Results Follow-Up [facility] [address] [phone] Opal Polisher: Ligia Mock LPN 10/08/2024 Results Follow-Up [facility] [address] [phone] Opal Polisher: Ligia Mock LPN 10/07/2024 Telephone [facility] [address] [address] Opal Polisher: Gricelda Limon MA 10/01/2024 Telephone [facility] 2nd Floor [address] [place] [phone] Opal Polisher: Rachna Lopez MD 09/27/2024 Refill [facility] [address] [phone] Opal Polisher: Rachna Lopez MD Mycosis fungoides, unspecified body region 09/03/2024 Telephone [facility] [address] [place] [phone] Opal Polisher: Ana Laura Garrett Prior Authorization 09/02/2024 Telephone [facility] [address] [place] [phone] Opal Polisher: Sumaya Price Telephone Intake, Staff PAC Form/Letter/Records Request-Caterina from Last 3 Months Social History Tobacco [...] Care Team (Late st Contact Info) Description 01/21/2025 3:15 PM EDT Office Visit [facility] [address] [place] [phone] Opal Polisher: Jose Etienne MD [address] [place] [phone] Health Maintenance Due Date Last Done Comments [...] this topic Procedures * Due to [place] state law, this organization might not be sharing negative HIV tests. Procedure Name Priority Date/Time Associated Diagnosis Comments CBC AUTO DIFFERENTIAL Routine 10/22/2024 1:42 PM EDT Mycosis fungoides, unspecified body region (HCC) LEUKEMIA/LYMPHOMA EVALUATION, BLOOD Routine 10/22/2024 1:42 PM EDT Mycosis fungoides, unspecified body region (HCC) LACTATE DEHYDROGENASE Routine 10/22/2024 1:42 PM EDT Mycosis fungoides, unspecified body region (HCC) TSH REFLEX FREE T4 Routine 10/04/2024 9: 21 AM EDT High risk medication use CBC AUTO DIFFERENTIAL Routine 10/04/2024 9:16 AM EDT High risk medication use COMPREHENSIVE METABOLIC PANEL Routine 10/04/2024 9:16 AM EDT High risk medication use LIPID PANEL Routine 10/04/2024 9:16 AM EDT High risk medication use from Last 3 Months Results * Due to [place] state law, this organization might not be sharing negative HIV tests. * Flow Cytometry for Leukemia/Lymphoma Evaluation, Blood (10/22/2024 1:42 PM EDT) %CD3-CD7+ 5.2 % 10/23/2024 2:49 PM EDT [facility] %CD19+CD20+ 13.2 % 10/23/2024 2:49 PM EDT [facility] %CD3+CD4+ 62.5 % 10/23/2024 2:49 PM EDT [facility] %CD3+CD8+ 22.5 % 10/23/2024 2:49 PM EDT [facility] Pathologist Interpretation FLOW CYTOMETRY REPORT ?? PERIPHERAL BLOOD:? - CD4:CD8 T-cell ratio is 2.7;1. - CD3+CD4+ T cells comprise 62% of gated lymphocytes and 3% of total cells (absolute CD4+ cells normal range: 370-1540 cells/uL). - CD4+ CD26- T-cells comprise 18% of lymphocytes and 2.2% of total cells. - CD4+ CD7- T-cells comprise 15% of lymphocytes and 0.8% of total cells. - Polytypic B cells. - No immature myelomonocytic cells are detected.? Comment:?? The current specimen shows CD4+CD7- T cells that are less than 40% and CD4+CD26- T-cells that are less than 30% of the lymphocyte population. This does not suggest involvement by S??zary Syndrome. It should be noted that partial loss of CD7 and CD26 on benign T-lymphocytes is associated with??aging,??inf lammatory dermatoses or following therapy. If clinical suspicion persists, repeat flow cytometry along with T-cell clonality testing is advised. ?? References: - Conner DAY, Mayra E, Kevin M, Karon R, Lyudmila R, Michelet PL, Nilesh E, Parvin F, Ward R, Marisa P, Florencia BECKER. Blood classification and blood response criteria in mycosis fungoides and S??zary syndrome using flow cytometry: recommendations from the EORTC cutaneous lymphoma task force. Journal of Cancer. 2018 Oct 01;93:47-56. - Ad EC, Minal JS. CD4+ CD26- lymphocytes are useful to assess blood involvement and define B ratings in cutaneous T cell lymphoma. Leukemia &Lymphoma. 2018 Aug 03;59(2):330-9. . 10/23/2024 2:49 PM EDT [facility] ASR Disclaimer Some of these tests were developed and their performance characteristics determined by the Hematopathology Laboratory at [facility]. They have not been cleared or approved by the Food and Drug Administration. The FDA has determined that such clearance or approval is not necessary. This test is used for clinical purposes. It should not be regarded as investigational or for research. This laboratory is certified under the Clinical Laboratory Improvement Amendments of 1988 (CLIA-88) as qualified to perform high complexity clinical laboratory testing. 10/23/2024 2:49 PM EDT [facility] Clinical History CTCL, monitoring flow 10/23/2024 2:49 PM EDT [facility] Flow Cytometry Markers CD2, CD3, CD4, CD5, CD7, CD8, CD10, CD19, CD20, CD23, CD26, CD34, CD38, CD45, CD117, HLA-DR, s-[place], s-Lambda (18 markers) The antibodies listed are the necessary markers for the study of B-cells, T-cells, and myelomonocytic cells. The results obtained support the diagnosis. 10/23/2024 2:49 PM EDT [facility] Number of Billable Markers 18 10/23/2024 2:49 PM EDT [facility] Blood Structure of peripheral vein / Unknown Venipuncture / Unknown 10/22/2024 1:42 PM EDT 10/22/2024 1:48 PM EDT us Jose Cassidy MD LAB FLOW CYTOMETRY ORDERABLES Final Result [facility] [address] [place] [phone], [place] * (ABNORMAL) CBC Auto Differential (10/22/2024 1:42 PM EDT) Only the most recent of2 resultswithin the time period is included. WBC 9.9 3.8 - 10.8 10*3/uL 10/22/2024 6:36 PM EDT [facility] RBC 5.22(H) 3.80 - 5.10 10*6/uL 10/22/2024 6:36 PM EDT [facility] Hemoglobin 13.5 11.7 - 15.5 g/dL 10/22/2024 6:36 PM EDT [facility] [facility] Hematocrit 42.6 35.0 - 45.0 % 10/22/2024 6:36 PM EDT [facility] MCV 81.6 80.0 - 100.0 fL 10/22/2024 6:36 PM EDT [facility] MCH 25.9(L) 27.0 - 33.0 pg 10/22/2024 6:36 PM EDT [facility] [facility] MCHC 31.7(L) 32.0 - 36.0 g/dL 10/22/2024 6:36 PM EDT [facility] RDW 13.4 11.0 - 15.0 % 10/22/2024 6:36 PM EDT [facility] [facility] Platelets 258 140 - 400 10*3/uL 10/22/2024 6:36 PM EDT [facility] [facility] MPV 11.0 7.5 - 12.5 fL 10/22/2024 6:36 PM EDT [facility] Neutrophil % 75.5 % 10/22/2024 6:36 PM EDT [facility] [facility] Immature Grans % 0.3 0.0 - 0.9 % 10/22/2024 6:36 PM EDT [facility] Lymphocyte % 14.0 % 10/22/2024 6:36 PM EDT [facility] Monocyte % 7.4 % 10/22/2024 6:36 PM EDT [facility] [facility] Eosinophil % 2.5 % 10/22/2024 6:36 PM EDT [facility] [facility] Basophil % 0.3 % 10/22/2024 6:36 PM EDT [facility] [facility] Neutrophil # 7.47 1.50 - 7.80 10*3/uL 10/22/2024 6:36 PM EDT [facility] [facility] Immature Grans # 0.03 <=0.03 10*3/uL 10/22/2024 6:36 PM EDT [facility] [facility] Lymphocyte # 1.40 0.85 - 3.90 10*3/uL 10/22/2024 6:36 PM EDT [facility] Monocyte # 0.70 0.20 - 0.95 10*3/uL 10/22/2024 6:36 PM EDT [facility] [facility] Eosinophil # 0.30 0.02 - 0.50 10*3/uL 10/22/2024 6:36 PM EDT [facility] Basophil # <0.03 0.00 - 0.20 10*3/uL 10/22/2024 6:36 PM EDT [facility] [facility] nRBC % 0.0 /100 WBCs 10/22/2024 6:36 PM EDT [facility] [facility] nRBC # <0.01 <0.01 10*3/uL 10/22/2024 6:36 PM EDT [facility] Blood Structure of peripheral vein / Unknown Venipuncture / Unknown 10/22/2024 1:42 PM EDT 10/22/2024 1:48 PM EDT Jose Cassidy MD LAB BLOOD ORDERABLES Final Res ult Performing Organization Address [facility] Co de Phone Number [facility] [address] [place] [address], [place] * (ABNORMAL) Lactate dehydrogenase (10/22/2024 1:42 PM EDT) LDH 255(H) 135 - 225 U/L 10/22/2024 6:46 PM EDT [facility] Blood Structure of peripheral vein / Unknown Venipuncture / Unknown 10/22/2024 1:42 PM EDT 10/22/2024 1:48 PM EDT Jose Cassidy MD LAB BLOOD ORDERABLES Final Res ult Performing Organization Address [facility] de Phone Number [facility] [address] [place] [address], [place] * TSH Reflex Free T4 (10/04/2024 9:21 AM EDT) TSH 2.08 0.40 - 4.50 mIU/L 10/05/2024 2:14 AM EDT [facility] Blood Structure of peripheral vein / Unknown 10/04/2024 9:21 AM EDT 10/04/2024 11:42 PM EDT [facility] - 10/05/2024 2:19 AM EDT FASTING:YES Jose Cassidy MD LAB BLOOD ORDERABLES Final Res ult Performing Organization Address City/[facility]/ZIP Co de Phone Number [facility] [address] [facility] 3rd Floor, [place] [address], [place] [phone] [facility] [address] [place] [address] * (ABNORMAL) Lipid panel (10/04/2024 9:16 AM EDT) Cholesterol, Total 148 <200 mg/dL 10/05/2024 12:31 AM EDT [facility] HDL Cholesterol 44(L) > OR = 50 mg/dL 10/05/2024 12:31 AM EDT [facility] Triglycerides 139 <150 mg/dL 10/05/2024 12:31 AM EDT [facility] LDL-Cholesterol 80 mg/dL (calc) 10/05/2024 12:31 AM EDT [facility] Comment: Reference range: <100 Desirable range <100 mg/dL for primary prevention; ?? <70 mg/dL for patients with CHD or diabetic patients with > or = 2 CHD risk factors. LDL-C is now calculated using the Cassius calculation, which is a validated novel method providing better accuracy than the Friedewald equation in the estimation of LDL-C. Phuc DALE et al. KIAN. 2013;310(19): 9622-1581 (http://education.Veenome/faq/GAL621) Chol/HDLC Ratio 3.4 <5.0 (calc) 10/05/2024 12:31 AM EDT [facility] Non HDL Cholesterol 104 <130 mg/dL (calc) 10/05/2024 12:31 AM EDT [facility] Comment: For patients with diabetes plus 1 major ASCVD risk factor, treating to a non-HDL-C goal of <100 mg/dL (LDL-C of <70 mg/dL) is considered a therapeutic option. Blood Structure of peripheral vein / Unknown 10/04/2024 9:16 AM EDT 10/04/2024 10:39 PM EDT Narrative [facility] - 10/05/2024 2:21 AM EDT FASTING:YES us Jose Cassidy MD LAB BLOOD ORDERABLES Final Res ult [facility] [address] [facility] [address]rd [address], [place] [address], [place] [phone] [facility] [address] [place] [address] * (ABNORMAL) Comprehensive Metabolic Panel (10/04/2024 9:16 AM EDT) [facility] Glucose 102(H) 65 - 99 mg/dL 10/05/2024 12:31 AM [facility] Comment: ? Fasting reference interval For someone without known diabetes, a glucose value between 100 and 125 mg/dL is consistent with prediabetes and should be confirmed with a follow-up test. BUN 22 7 - 25 mg/dL 10/05/2024 12:31 AM [facility] Creatinine 0.99 0.50 - 1.05 mg/dL 10/05/2024 12:31 AM [facility] eGFR 63 > OR = 60 mL/min/1. 73m2 10/05/2024 12:31 AM [facility] Bun/Creatinine Ratio SEE NOTE: 6 - 22 (calc) 10/05/2024 12:31 AM [facility] Comment: ?? Not Reported: BUN and Creatinine are within ?? reference range. ? Sodium 142 135 - 146 mmol/L 10/05/2024 12:31 AM [facility] Potassium 4.5 3.5 - 5.3 mmol/L 10/05/2024 12:31 AM [facility] Chloride 106 98 - 110 mmol/L 10/05/2024 12:31 AM [facility] Carbon Dioxide 30 20 - 32 mmol/L 10/05/2024 12:31 AM [facility] Calcium 9.2 8.6 - 10.4 mg/dL 10/05/2024 12:31 AM [facility] Protein, Total 6.5 6.1 - 8.1 g/dL 10/05/2024 12:31 AM [facility] Albumin 4.2 3.6 - 5.1 g/dL 10/05/2024 12:31 AM [facility] Globulin 2.3 1.9 - 3.7 g/dL (calc) 10/05/2024 12:31 AM [facility] Albumin/Globuli n Ratio 1.8 1.0 - 2.5 (calc) 10/05/2024 12:31 AM [facility] Bilirubin, Total 0.5 0.2 - 1.2 mg/dL 10/05/2024 12:31 AM EDT [facility] Alkaline Phosphatase 130 37 - 153 U/L 10/05/2024 12:31 AM EDT [facility] AST 23 10 - 35 U/L 10/05/2024 12:31 AM EDT [facility] ALT 15 6 - 29 U/L 10/05/2024 12:31 AM EDT [facility] Blood Structure of peripheral vein / Unknown 10/04/2024 9:16 AM EDT 10/04/2024 10:39 PM EDT Narrative [facility] - 10/05/2024 2:21 AM EDT FASTING:YES us Jose Cassidy MD LAB BLOOD ORDERABLES Final Res ult [facility] [address] [facility] 3rd [address], [place] [address], [place] [phone] [facility] [address] [place] [address] from Last 3 Months Insurance [facility] Care Teams Paper Baling Machine Operator Relationship Specialty Start Date End Date Morgan Marks [address] [place] [phone] PCP - General Internal Medicine 10/22/24
--- OUTSIDE RECORDS SUMMARY | 2024-11-20 14:31 | XMS_ITS | Encounter Summary ---
Author Organization [facility] Address [address] [place] [address] Care Team Providers Care Stripper Machine Operator Name Role Phone Morgan Marks Primary Care Provider [phone] Encounter Details Date Type Department Care Team (Late st Contact Info) Description 10/08/2024 Results Follow-Up [facility] [address]th [address] [place] [phone] [employer] Director: Ligia Mock LPN Social History Tobacco Use [...] AM EST documented as of this encounter Plan of Treatment Upcoming Encounters Date Type Department Care Team (Late st Contact Info) Description 01/21/2025 3:15 PM EDT Office Visit [facility] 4th Floor [address] [place] [address] [employer] Director: Jose Etienne MD [address] [place] [address] documented as of this encounter Visit Diagnoses Not on filedocumented in this encounter Care Teams Stripper Machine Operator Relationship Specialty Start Date End Date Morgan Marks [address] [place] [phone] PCP - General Internal Medicine 10/22/24 documented as of this encounter
--- OUTSIDE RECORDS SUMMARY | 2024-11-20 14:31 | XMS_ITS | Encounter Summary ---
Author Organization [facility] Address [address] [place] [address] Care Team Providers Care Hot Baller Name Role Phone Morgan Marks Primary Care Provider [phone] Encounter Details Date Type Department Care Team (Late st Contact Info) Description 10/08/2024 Results Follow-Up [facility] [address]th [address] [place] [phone] Coater Helper: Ligia Mock LPN Social History Tobacco Use [...] Description 01/21/2025 3:15 PM EDT Office Visit [facility] 4th Floor [address] [place] [phone] Coater Helper: Jose Etienne MD [address] [place] [address] documented as of this encounter Visit Diagnoses Not on filedocumented in this encounter Care Teams Hot Baller Relationship Specialty Start Date End Date Morgan Marks [address] [place] [phone] PCP - General Internal Medicine 10/22/24 documented as of this encounter
--- OUTSIDE RECORDS SUMMARY | 2024-11-20 14:31 | XMS_ITS | Encounter Summary ---
Author Organization [facility] Address [address] [place] [address] Care Team Providers Care Educational Assistant Name Role Phone Morgan Marks Primary Care Provider [phone] Encounter Details Date Type Department Care Team (Late st Contact Info) Description 10/25/2024 Results Follow-Up [facility] 4th Floor [address] [facility], [place] [address] Commercial Property Manager: Rachna Lopez MD [address] [place] [address] [place] [address] Social History Tobacco Use Types Packs/Day Years [...] Encounter Note - Rachna Spain MD - 10/25/2024 3:38 PM EDT Called and spoke with patient and her daughter - relayed stable bloodwork, LDH remains elevated butimproved, flow cytometry still with B1 level involvement but also improved. May continue with plan to continue acitretin daily, and she has follow-up 12/2024. Acitretin monitoring labs can be rechecked at that time. They are in agreement with plan. documented in this encounter Plan of Treatment Upcoming Encounters Date Type Department Care Team (Late st Contact Info) Description 01/21/2025 3:15 PM EDT Office Visit [facility] 4th Floor [address] [facility], [place] [address] Commercial Property Manager: Jose Etienne MD [address] [place] [phone] documented as of this encounter Visit Diagnoses Not on filedocumented in this encounter Care Teams Educational Assistant Relationship Specialty Start Date End Date Morgan Marks [address] [place] [phone] PCP - General Internal Medicine 10/22/24 documented as of this encounter
--- OUTSIDE RECORDS SUMMARY | 2024-11-20 14:31 | XMS_ITS | Referral Summary ---
Author Organization [facility] Address [address] [place] [address] Care Team Providers Care Nurse Special Name Role Phone Morgan Marks Primary Care Provider [phone] Encounters Date Type Department Care Team Description 10/25/2024 Results Follow-Up [facility] 4th Floor [address] [place] [address] Tour Bus Driver/Guide: Rachna Lopez MD 10/22/2024 1:30 PM EDT Office Visit [facility] 4th Floor [address] [place] [address] Tour Bus Driver/Guide: Jose Etienne MD Mycosis fungoides, unspecified body region (HCC) (Primary Dx) 10/08/2024 Results Follow-Up [facility] 4th Floor [address] [place] [address] Tour Bus Driver/Guide: Ligia Mock LPN 10/08/2024 Results Follow-Up [facility] 4th Floor [address] [place] [address] Tour Bus Driver/Guide: Ligia Mock LPN 10/07/2024 Telephone [facility] 2nd Floor [address] [facility], [place] [address] Tour Bus Driver/Guide: Gricelda Limon [place] 10/01/2024 Telephone [facility] 2nd Floor [address] [facility], [place] [address] Tour Bus Driver/Guide: Rachna Lopez MD 09/27/2024 Refill [facility] 4th Floor [address] [facility], [place] [phone] Tour Bus Driver/Guide: Rachna Lopez MD Mycosis fungoides, unspecified body region 09/03/2024 Telephone [facility] [address]th [address] [place] [address], [place] [phone] Tour Bus Driver/Guide: Ana Laura Garrett Prior Authorization 09/02/2024 Telephone [facility] [address]th [address] [place] [address], [place] [phone] Tour Bus Driver/Guide: Sumaya Price Telephone Intake, Staff PAC Form/Letter/Records Request-Caterina from Last 3 Months Allergies Active Allergy [...] Discontinued Active Problems No known active problems Social [...] Description 01/21/2025 3:15 PM EDT Office Visit [facility] 4th Floor [address] [facility], Fourth [place] [address] Tour Bus Driver/Guide: Jose Etienne MD [address] [place] [address] [phone] Procedures * Due to [place] state law, this organization might not be [...] Last 3 Months Results * Due to [place] state law, this organization might not be sharing negative HIV tests. * Flow Cytometry for Leukemia/Lymphoma Evaluation, Blood (10/22/2024 1:42 PM EDT) %CD3-CD7+ 5.2 % 10/23/2024 2:49 PM EDT [facility] %CD19+CD20+ 13.2 % 10/23/2024 2:49 PM EDT [facility] %CD3+CD4+ 62.5 % 10/23/2024 2:49 PM EDT [facility] %CD3+CD8+ 22.5 % 10/23/2024 2:49 PM EDT [facility] Pathologist Interpretation FLOW CYTOMETRY [...] 2018 Aug 03;59(2):330-9. . 10/23/2024 2:49 PM T [facility] PATHOLOG[facility] LABORATORY ASR Disclaimer Some of these tests were developed and their performance characteristics determined by the Hematopathology Laboratory at [facility]. They have not been cleared or approved [...] complexity clinical laboratory testing. 10/23/2024 2:49 PM T [facility] LABOR[facility] Clinical History CTCL, monitoring flow 10/23/2024 2:49 PM EDT [facility] LAB[facility] Flow Cytometry Markers CD2, CD3, CD4, CD5, CD7, CD8, CD10, CD19, CD20, CD23, CD26, CD34, CD38, CD45, CD117, HLA-DR, s-Concho, s-Lambda (18 markers) The antibodies listed are the necessary markers for the study of B-cells, T-cells, and myelomonocytic cells. The results obtained support the diagnosis. 10/23/2024 2:49 PM EDT [facility] Golf121 [facility] PATHOLOG[facility] LABORATORY Number of Billable Markers 18 10/23/2024 2:49 PM EDT [facility] [employer] [facility] Blood Structure of peripheral vein / Unknown Venipuncture / Unknown 10/22/2024 1:42 PM EDT 10/22/2024 1:48 PM EDT us Jose Cassidy MD LAB FLOW CYTOMETRY ORDERABLES Final Result [facility] [employer] [facility] [address] [place] [address], * (ABNORMAL) CBC Auto Differential (10/22/2024 1:42 PM EDT) Only the most recent of2 resultswithin the time period is included. WBC 9.9 3.8 - 10.8 10*3/uL 10/22/2024 6:36 PM EDT [facility] [employer] CL[facility] PATHOLOG[facility] LABORAT[facility] RBC 5.22(H) 3.80 - 5.10 10*6/uL 10/22/2024 6:36 PM EDT [facility] [employer] [facility] LAB[facility] Hemoglobin 13.5 11.7 - 15.5 g/dL 10/22/2024 6:36 PM EDT [facility] [employer] [facility] LAB[facility] Hematocrit 42.6 35.0 - 45.0 % 10/22/2024 6:36 PM EDT [facility] [employer] [facility]OLOG[facility] LABOR[facility]ORY MCV 81.6 80.0 - 100.0 fL 10/22/2024 6:36 PM EDT [facility] MCH 25.9(L) 27.0 - 33.0 pg 10/22/2024 6:36 PM EDT [facility] MCHC 31.7(L) 32.0 - 36.0 g/dL 10/22/2024 6:36 PM EDT [facility] RDW 13.4 11.0 - 15.0 % 10/22/2024 6:36 PM EDT [facility] Platelets 258 140 - 400 10*3/uL 10/22/2024 6:36 PM EDT [facility] MPV 11.0 7.5 - 12.5 fL 10/22/2024 6:36 PM EDT [facility] Neutrophil % 75.5 % 10/22/2024 6:36 PM EDT [facility] Immature Grans % 0.3 0.0 - 0.9 % 10/22/2024 6:36 PM EDT [facility] Lymphocyte % 14.0 % 10/22/2024 6:36 PM EDT [facility] Monocyte % 7.4 % 10/22/2024 6:36 PM EDT [facility] Eosinophil % 2.5 % 10/22/2024 6:36 PM EDT [facility] Basophil % 0.3 % 10/22/2024 6:36 PM EDT [facility] Neutrophil # 7.47 1.50 - 7.80 10*3/uL 10/22/2024 6:36 PM EDT [facility] Immature Grans # 0.03 <=0.03 10*3/uL 10/22/2024 6:36 PM EDT [facility] Lymphocyte # 1.40 0.85 - 3.90 10*3/uL 10/22/2024 6:36 PM EDT [facility] Monocyte # 0.70 0.20 - 0.95 10*3/uL 10/22/2024 6:36 PM EDT [facility] [employer] CLINICAL PATHOLOGY LABORATORY Eosinophil # 0.30 0.02 - 0.50 10*3/uL 10/22/2024 6:36 PM EDT [facility] CLINICAL PATHOLOGY LABORATORY Basophil # <0.03 0.00 - 0.20 10*3/uL 10/22/2024 6:36 PM EDT [facility] [employer] CLINICAL PATHOLOGY LABORATORY nRBC % 0.0 /100 WBCs 10/22/2024 6:36 PM EDT [facility] [employer] CLINICAL PATHOLOGY LABORATORY nRBC # <0.01 <0.01 10*3/uL 10/22/2024 6:36 PM EDT [facility] Blood Structure of peripheral vein / Unknown Venipuncture / Unknown 10/22/2024 1:42 PM EDT 10/22/2024 1:48 PM EDT Jose Cassidy MD LAB BLOOD ORDERABLES Final Res ult Performing Organization Address City/[facility]/ZIP Co de Phone Number [facility]adiCOMM[facility] Golf121 CLINICAL PATHOLOGY LABORATORY [address] [place] [address], [place] * (ABNORMAL) Lactate dehydrogenase (10/22/2024 1:42 PM EDT) LDH 255(H) 135 - 225 U/L 10/22/2024 6:46 PM EDT [facility] [employer] CLINICAL PATHOLOGY LABORATORY Blood Structure of peripheral vein / Unknown Venipuncture / Unknown 10/22/2024 1:42 PM EDT 10/22/2024 1:48 PM EDT Jose Cassidy MD LAB BLOOD ORDERABLES Final Res ult [facility] Golf121 CLINICAL PATHOLOGY LABORATORY [address] [place] [address], [place] * TSH Reflex Free T4 (10/04/2024 9:21 AM EDT) Pathologist [facility] TSH 2.08 0.40 - 4.50 mIU/L 10/05/2024 2:14 AM EDT [facility] Blood Structure of peripheral vein / Unknown 10/04/2024 9:21 AM EDT 10/04/2024 11:42 PM EDT Narr[facility] - 10/05/2024 2:19 AM EDT FASTING:YES us Jose Cassidy MD LAB BLOOD ORDERABLES Final Res ult [facility] [address] [facility] 3rd Floor, [place] [address], [employer] [facility] [address] [place] [address] * (ABNORMAL) Lipid panel (10/04/2024 9:16 AM EDT) Pathologist [facility] Cholesterol, Total 148 <200 mg/dL 10/05/2024 12:31 AM EDT [facility] HDL Cholesterol 44(L) > OR = 50 mg/dL 10/05/2024 12:31 AM [facility] Triglycerides 139 <150 mg/dL 10/05/2024 12:31 AM [facility] LDL-Cholesterol 80 mg/dL (calc) 10/05/2024 12:31 AM [facility] Comment: Reference range: <100 Desirable range <100 mg/dL for primary prevention; ?? <70 mg/dL for patients with CHD or diabetic patients with > or = 2 CHD risk factors. LDL-C is now calculated using the Phuc-Larissa calculation, which is a validated novel method providing better accuracy than the Friedewald equation in the estimation of LDL-C. Phuc SS et al. KIAN. 2013;310(19): 5902-5302 (http://education.CombaGroup/faq/VEI552) Chol/HDLC Ratio 3.4 <5.0 (calc) 10/05/2024 12:31 AM EDT [facility] Non HDL Cholesterol 104 <130 mg/dL (calc) 10/05/2024 12:31 AM [facility] Comment: For patients with diabetes plus 1 [...] ORDERABLES Final Res ult [facility] [address] [facility] 3rd Floor, [place] [address], [facility] [address] [place] [address] * (ABNORMAL) Comprehensive Metabolic Panel (10/04/2024 9:16 AM EDT) Glucose 102(H) 65 - 99 mg/dL 10/05/2024 12:31 AM [employer] Comment: ? Fasting reference interval For someone without known diabetes, a glucose value between 100 and 125 mg/dL is consistent with prediabetes and should be confirmed with a follow-up test. BUN 22 7 - 25 mg/dL 10/05/2024 12:31 AM [facility] Creatinine 0.99 0.50 - 1.05 mg/dL 10/05/2024 12:31 AM [employer] eGFR 63 > OR = 60 mL/min/1. 73m2 10/05/2024 12:31 AM [employer] Bun/Creatinine Ratio SEE NOTE: 6 - 22 (calc) 10/05/2024 12:31 AM [employer] Comment: ?? Not Reported: BUN and Creatinine are within ?? reference range. ? Sodium 142 135 - 146 mmol/L 10/05/2024 12:31 AM [facility] Potassium 4.5 3.5 - 5.3 mmol/L 10/05/2024 12:31 AM [employer] Chloride 106 98 - 110 mmol/L 10/05/2024 12:31 AM EDT [facility] Carbon Dioxide 30 20 - 32 mmol/L 10/05/2024 12:31 AM EDT [facility] Calcium 9.2 8.6 - 10.4 mg/dL 10/05/2024 12:31 AM EDT [facility] Protein, Total 6.5 6.1 - 8.1 g/dL 10/05/2024 12:31 AM EDT [facility] Albumin 4.2 3.6 - 5.1 g/dL 10/05/2024 12:31 AM EDT [facility] Globulin 2.3 1.9 - 3.7 g/dL (calc) 10/05/2024 12:31 AM EDT [facility] Albumin/Globuli n Ratio 1.8 1.0 - 2.5 (calc) 10/05/2024 12:31 AM EDT [facility] Bilirubin, Total 0.5 0.2 - 1.2 mg/dL 10/05/2024 12:31 AM EDT [facility] Alkaline Phosphatase 130 37 - 153 U/L 10/05/2024 12:31 AM EDT [employer] AST 23 10 - 35 U/L 10/05/2024 12:31 AM EDT [facility] ALT 15 6 - 29 U/L 10/05/2024 12:31 AM [employer] [facility] Blood Structure of peripheral vein / Unknown 10/04/2024 9:16 AM EDT 10/04/2024 10:39 PM EDT Narrative [facility] - 10/05/2024 2:21 AM EDT FASTING:YES us Jose Cassidy MD LAB BLOOD ORDERABLES Final Res ult [facility] [address] [facility] [address] [place] [address], [place] [phone] [employer] [address] [place] [address] from Last 3 Months Insurance [employer] [place] [id number] Care Teams Nurse Special Relationship Specialty Start Date End Date Morgan Marks [address] [place] [phone] PCP - General Internal Medicine 10/22/24
--- OUTSIDE RECORDS SUMMARY | 2024-11-20 14:31 | XMS_ITS | Encounter Summary ---
Author Organization [facility] Address [address] [place] [address] Care Team Providers Care Rn Oncology Clinical Name Role Phone Morgan Marks Primary Care Provider Encounter Details Date Type Department Care Team (Late st Contact Info) Description 02/26/2024 Lab Requisition [facility] [address] [place] [address] Rachna Spain MD [address] [place] [address] [place] [address] Social History Tobacco Use Types Packs/Day Years [...] internal review of prior biopsy obtained with [facility] dermatology, our pathologists agree with diagnosis [...] Description 01/21/2025 3:15 PM EDT Office Visit [facility] 4th Floor [address] [facility], [place] [address] Excel Specialist: Jose Etienne MD [address] [place] [address] documented as of this encounter Procedures * Due to [facility] law, this organization might not be sharing negative HIV tests. Procedure Name Priority Date/Time Associated Diagnosis Comments TISSUE EXAM Routine 02/26/2024 3:45 PM EDT documented in this encounter Results * Due to [facility] law, this organization might not be sharing negative HIV tests. * Tissue Exam (02/26/2024 3:45 PM EDT) Final Diagnosis Review of Outside Slides Received from [facility] Labeled [id number] Procedure Date 11/28/2043: Specimen #1 - Skin, [...] prior specimen from this patient (please see [id number], obtained 09/01/2023, not available for review). 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 Clinico-pathologic correlation is recommended. This case was reviewed at the dermatopathology division consensus conference. [facility] MANUAL 4 2:01 PM EDT [facility] at 1401 EDT Clinical History NA [facility] MANUAL 4 2:01 PM EDT [facility] Gross Consult Client Facility: [facility] Slide Identification: [id number] Number of Glass Slides Received: 10 Number of Blocks Received: 0 Client Pathologist: Toma Natarajan MD Accompanying Report Received: yes [facility] MANUAL 4 2:01 PM EDT [facility] Best Block for Ancillary Studies A1, B1 [facility] MANUAL 4 2:01 PM EDT [facility] Embedded Images [facility] MANUAL 4 2:01 PM EDT [facility] Resulting Agency Case was signed out at [facility], Department of Pathology, [facility] 3 CLIA [id number] [facility] MANUAL 4 2:01 PM EDT [facility] Report Header Surgical Pathology Report ? Case: [id number] ? Authorizing Provider: ??Rachna Spain MD ? Collected: ? 02/26/2024 1545 ? Ordering Location: ? [facility] ? Received: ?02/26/2024 1546 ? [facility] ? Pathologist: ? Alana Wilde MD ? Specimen: ?Skin, Right Lateral Back ? 4 2:01 PM EDT [facility] Tissue Specimen from skin / Unknown 02/26/2024 3:45 PM EDT 02/26/2024 3:46 PM EDT us Rachna Spain MD LAB PATHOLOGY/CYTOLOGY ORDER ABELARDO Final Result [facility] [address] [place] [address], documented in this encounter Visit Diagnoses Not on filedocumented in this encounter Care Teams Rn Oncology Clinical Relationship Specialty Start Date End Date Morgan Marks [address] [place] [phone] PCP - General Internal Medicine 10/22/24 documented as of this encounter
== END 2024-11-20 14:53 | disposition home or self-care (01) ==
LOC: HO.ENCR 14:04
PROVIDERS: PCP Internal Medicine; Visit Provider Student in an Organized Health Care Education/Training Program
DX: E04.1 Nontoxic single thyroid nodule (principal)
CPT/HCPCS: 99213

== ENCOUNTER → 2024-11-20 14:02 | Outpatient (BNVA) | payer OTHER, SELFPAY | PROVIDERS: PCP Internal Medicine; Visit Provider Student in an Organized Health Care Education/Training Program | DX: E04.1 Nontoxic single thyroid nodule (principal) | CPT/HCPCS: 99212 ==

== ENCOUNTER 2025-01-15 09:23 | Outpatient (REF) | payer OTHER, SELFPAY ==
--- OUTSIDE RECORDS SUMMARY | 2025-01-15 09:44 | XMS_ITS | Encounter Summary ---
Author Organization [facility] Address [address] [place] [address] Care Team Providers Care Manual Plate Filler Name Role Phone Morgan Marks Primary Care Provider [phone] Encounter Details Date Type Department Care Team (Late st Contact Info) Description 02/26/2024 Lab Requisition [facility] Three Lab [address] [place] [address] Rachna Spain MD [address] [place] [address] [place] [address] Social History Tobacco Use Types Packs/Day Years [...] internal review of prior biopsy obtained with [facility] dermatology, our pathologists agree with diagnosis of [...] Description 01/21/2025 3:15 PM EDT Office Visit [facility] 4th Floor [address] [facility], [place] [address] Machine Edge Bander: Jose Etienne MD [address] [place] [address] documented as of this encounter Procedures * Due to [facility] law, this organization might not be sharing negative HIV tests. Procedure Name Priority Date/Time Associated Diagnosis Comments TISSUE EXAM Routine 02/26/2024 3:45 PM EDT documented in this encounter Results * Due to [facility] law, this organization might not be sharing negative HIV tests. * Tissue Exam (02/26/2024 3:45 PM EDT) Final Diagnosis Review of Outside Slides Received from [facility] Labeled [id number] Procedure Date 11/28/2043: Specimen #1 - Skin, [...] prior specimen from this patient (please see [id number], obtained 09/01/2023, not available for review). 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 Clinico-pathologic correlation is recommended. This case was reviewed at the dermatopathology division consensus conference. [facility] MANUAL 4 2:01 PM EDT [facility] at 1401 EDT Clinical History NA [facility] MANUAL 4 2:01 PM EDT [facility] Gross Consult Client Facility: [facility] Slide Identification: [id number] Number of Glass Slides Received: 10 Number of Blocks Received: 0 Client Pathologist: Toma Natarajan MD Accompanying Report Received: yes [facility] MANUAL 4 2:01 PM EDT [facility] Best Block for Ancillary Studies A1, B1 [facility] MANUAL 4 2:01 PM EDT [facility] Embedded Images [facility] MANUAL 4 2:01 PM EDT [facility] Resulting Agency Case was signed out at [facility], Department of Pathology, [facility] 3 CLIA [id number] [facility] MANUAL 4 2:01 PM EDT [facility] Report Header Surgical Pathology Report Case: [id number] Authorizing Provider: Rachna Spain MD Collected: 02/26/2024 1545 Ordering Location: [facility] Received: 02/26/2024 1546 [facility] Lab Pathologist: Alana Wilde MD Specimen: Skin, Right Lateral Back 4 2:01 PM EDT [facility] Tissue Specimen from skin / Unknown 02/26/2024 3:45 PM EDT 02/26/2024 3:46 PM EDT us Rachna Spain MD LAB PATHOLOGY/CYTOLOGY ORDER ABELARDO Final Result [facility] [address] [place] [address], documented in this encounter Visit Diagnoses Not on filedocumented in this encounter Care Teams Manual Plate Filler Relationship Specialty Start Date End Date Morgan Marks [address] [place] [phone] PCP - General Internal Medicine 10/22/24 documented as of this encounter
--- NOTE | 2025-01-15 10:05 | PM.PROC ---
Brief Operative Note Date of procedure: 01/15/25 Pre-op diagnosis: right mid lower 1.8 cm thyroid nodule FNA biopsy Post-op diagnosis: same Procedure: THYROID FINE NEEDLE ASPIRATION PROCEDURE NOTE ? PROCEDURE PERFORMED: Ultrasound-guided FNA of thyroid nodule ? OPERATORS: Dr. Faina Flowers ? INDICATION: right mid lower 1.8 cm thyroid nodule FNA biopsy; FNA performed to assess for malignancy ? DESCRIPTION OF PROCEDURE: The indications for FNA (to assess for malignancy) were reviewed with the patient in detail. Potential complications (e.g., bleeding, infection, damage to local structures, absence of clear diagnosis after FNA) were reviewed. Alternatives to FNA including conservative observation or surgery were described. The patient understood and agreed to proceed. This was documented by the signing of the written informed consent form. A time-out was performed to confirm the patient's identity and the site of planned FNA. The nodule of interest was identified using ultrasound (14 MHz linear array probe). The site of FNA was then draped in the usual fashion and carefully cleaned and prepared using alcohol swabs. The skin at the previously-identified site of needle insertion was iced and sprayed with numbing spray. Under ultrasound guidance, _4_ passes were performed using a 1.5-inch, 25-gauge needle, and sample was obtained via capillary action. The needle tip was clearly visualized to be within the nodule at the time of sampling for _4 of 4__ passes The patient tolerated the procedure well. There were no immediate complications. A small adhesive bandage was applied, and the patient was advised to take acetaminophen (rather than NSAIDs) for any discomfort and to report any signs of inflammation/infection or marked swelling. IMPRESSION: Technically successful ultrasound-guided fine needle aspiration of right mid lower 1.8 cm thyroid nodule. PLAN: The patient was advised that I will provide follow-up regarding the cytology result and any subsequent plans. Faina Flowers MD Endocrinology Attending Condition: stable Disposition: same day
== END 2025-01-15 09:24 | disposition home or self-care (01) ==
LOC: HO.US 09:23
PROVIDERS: PCP Internal Medicine; Visit Provider Student in an Organized Health Care Education/Training Program
DX: E04.1 Nontoxic single thyroid nodule (principal)
CPT/HCPCS: 10005; 88173; 88305

== ENCOUNTER → 2025-01-15 09:23 | Outpatient (BNV) | payer OTHER, SELFPAY | PROVIDERS: PCP Internal Medicine; Visit Provider Student in an Organized Health Care Education/Training Program | DX: E04.1 Nontoxic single thyroid nodule (principal) | CPT/HCPCS: 10005 ==

== ENCOUNTER 2025-02-05 12:38 | Outpatient (AMB) | payer OTHER, SELFPAY ==
--- NOTE | 2025-02-05 12:39 | MHC.OFFVIS ---
Vital Signs 02/05/25 12:41 Height 5 ft 3 in Weight 168 lb 7.321 oz BMI 29.8 BP 122/70 Blood Pressure Location Rt brachial Position Sitting Pulse 77 Pulse Source Pulse Oximeter Pulse Oximetry (%) 96 Oxygen Delivery Method Room Air Intake Visit Reasons: f/u FNA thyroid biopsy Intake Note: Patient present today for FNA thyroid biopsy follow up visit. Administrative Assistant Data Entry Required: No Accompanied by: Self / Same As Patient Allergies Sulfa (Sulfonamide Antibiotics) Allergy (Unknown, Verified 02/05/25 12:42) Rash Medication List - Last Reconciled 02/05/25 by Faina Flowers MD cetirizine (Zyrtec) 10 mg PO DAILY PRN doxepin 50 mg PO BEDTIME fluocinonide 0.05% 1 appl topical BID hydroxyzine HCl 25 mg PO BID PRN metoprolol succinate ER 50 mg PO DAILY tacrolimus 0.1% 1 appl topical BID triamcinolone acetonide 0.1% 1 appl topical DAILY HPI Comments Details: 64-year-old female here today for follow up of right-sided thyroid nodule. 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 No prior history of thyroid disease or disorders . Patient currently denies heat or cold intolerance, diarrhea or constipation, hair loss, palpitation, anxiety, weight changes, mood changes, low energy, changes in appearance of eyes or vision changes, tremors, increased diaphoresis or dry skin. ? Patient denies any difficulty swallowing, pain on swallowing or voice changes or difficulty breathing. Patient denies any history of childhood neck radiation. Denies having ever used lithium, amiodarone or biotin supplements. Patient denies any family history of thyroid cancer or thyroid disease. Ultrasound thyroid 10/11/2024: I reviewed the images myself that showed a dominant right mid to lower 1.8 cm solid, hypoechoic, taller than wide TR 5 category nodule which meets criteria for FNA. Another right midpole 1 cm solid, isoechoic TR 3 category nodule noted. Other subcentimeter spongiform appearing nodules noted in the right and left lobe . 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 Afirma results came back as benign with 4% risk of malignancy. Physical exam General: sitting comfortably in no acute distress HEENT: normocephalic/atraumatic, Neck: supple, symmetrical Cardiac: normal heart sounds Pulm: normal breath sounds B/L, no added breath sounds Abd: not distended, no tenderness Extremities: no edema, no signs of myxedema Laboratory Tests 09/26/24 10:42 TSH 1.88 Free T4 1.01 Total T3 109 US 10/11/24 THYROID CLINICAL INFORMATION: Nontoxic single thyroid nodule. COMPARISON: None available. TECHNIQUE: Linear transducer grayscale and color Doppler examination with attention to the region of the thyroid. FINDINGS: SIZE: Measurements of the thyroid lobes and nodules are given in sagittal, anteroposterior and transverse dimensions respectively. Right Thyroid Lobe: 4.5 x 2.5 x 1.4 cm, volume 8.3 mL. Parenchyma: The gland echotexture is homogeneous. Thyroid vascularity is normal. Left Thyroid Lobe: 4.5 x 1.6 x 1.7 cm, volume 6.1 mL. Parenchyma: The gland echotexture is homogeneous. Thyroid vascularity is normal. Isthmus: 0.3 cm in maximum AP dimension. Estimated total number of nodules greater than or equal to 1 cm: 2. 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 Location: Right mid to lower pole. Size: 1.7 x 1.8 x 1.6 cm, volume 2.6 mL. Nodule characteristics: Composition: Solid (2). Echogenicity: Hypoechoic (2). Shape: Taller than wide (3). Margins: Smooth (0). Echogenic Foci: None (0). ACR TI-RADS total points: 7 ACR TI-RADS category: 5 2. Location: Right mid pole. Size: 1.0 x 0.5 x 0.9 cm, volume 0.26 mL. Nodule characteristics: Composition: Solid (2). Echogenicity: Isoechoic (1). Shape: Not taller than wide (0). Margins: Smooth (0). Echogenic Foci: None (0). ACR TI-RADS total points: 3 ACR TI-RADS category: 3 There are 3 additional tiny subcentimeter benign TR category 1 nodules in the right isthmus, and right upper thyroid. NODES: No lymphadenopathy is seen in the tissue surrounding the thyroid gland. US/US thyroid IMPRESSION: 1. There is a 1.8 cm TR category 5 nodule in the right lower pole. FNA recommended. 2. There is a 1.0 cm TR category 3 nodule in the right midpole. No follow-up recommended. 3. There are 3 additional tiny TR category 1 subcentimeter nodules in the right isthmus and upper right thyroid. These are benign. 4. Surrounding thyroid parenchyma is normal. [facility] Medical History (Updated 09/26/24 @ 10:11 by Faina Flowers MD) Thyroid nodule Surgical History Hx of knee surgery Family History Mother Diabetes Father Liver cancer Social History Alcohol intake: never Patient Tobacco Use Status: Never used Tobacco Physical Exam Vital Signs: Last Vital Signs Pulse 77 02/05/25 12:41 BP 122/70 02/05/25 12:41 Pulse Ox 96 02/05/25 12:41 Oxygen Delivery Method Room Air 02/05/25 12:41 BMI result Body Mass Index 29.8 Assessment & Plan Assessment & Plan (1) Thyroid nodule: Code(s): E04.1 - Nontoxic single thyroid nodule Category: Medical Plan: 64-year-old female with no family history of thyroid cancer, with no personal history of head or neck radiation who had a PET-CT in July 2024 for 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 No prior history of thyroid disease or disorders . Focal FDG PET uptake within a sonographically confirmed thyroid nodule conveys and increased risk of thyroid cancer and FNA is recommended for those nodules greater than 1 cm. Diffuse uptake with clinical evidence of chronic lymphocytic thyroiditis does not require further imaging or FNA. Ultrasound thyroid 10/11/2024: I reviewed the images myself that showed a dominant right mid to lower 1.8 cm solid, hypoechoic, taller than wide TR 5 category nodule which meets criteria for FNA. Another right midpole 1 cm solid, isoechoic TR 3 category nodule noted. Other subcentimeter spongiform appearing nodules noted in the right and left lobe . TFTs normal 09/2410/30/2024: Underwent FNA of the left inferior pole 1.8 cm nodule which came back as nondiagnostic, [place] category 1. I explained to the patient that nondiagnostic results yield a 5-20% risk of malignancy and especially given that there was increased activity in this area on the PET-CT, we should repeat a biopsy of this nodule. 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 Afirma results came back as benign with 4% risk of malignancy. Discussed with the patient that suspicious for follicular neoplasm category yields a 30% risk malignancy, however based on molecular genetics, given benign results that he will is a 4% risk of malignancy. While diagnostic lobectomy is an option to rule out malignancy, it is also reasonable to monitor this nodule with surveillance ultrasounds. I discussed with her the thyroid cancer in most cases is a slow growing indolent type of cancer and that is why we feel comfortable monitoring nodules with surveillance ultrasounds however patient understands there is still a possible risk of malignancy which could in rare cases spread and be fatal. At this point she is agreeable to surveillance ultrasounds. -Plan: -repeat thyroid ultrasound ordered for December 2025 with follow up in January 2026 -TSH with a reflex free T4 to be done prior to follow up in 1 year Plan See above Orders: Orders Thyroid Stimulating Hormone 01/05/26 E04.1 - Nontoxic single thyroid nodule Free T4 (Free Thyroxine) 01/05/26 E04.1 - Nontoxic single thyroid nodule US thyroid 01/05/26 E04.1 - Nontoxic single thyroid nodule Patient Instructions: Do ultrasound of the thyroid in December 2025, someone we will call you to schedule this, please make sure this is done a few weeks prior to your next follow up with me in 1 year Do thyroid blood work a few days prior to your next follow up, orders have been placed Follow up in 1 year in January 2026 to discuss results Coding Level of Care Code Est Pt Level 3 (96001) Diagnoses Thyroid nodule E04.1
[2025-02-05 12:41] VITALS: BP 122/70; PULSE 77; O2SAT 96; BMI 29.8
--- OUTSIDE RECORDS SUMMARY | 2025-02-05 13:11 | XMS_ITS | Encounter Summary ---
Author Organization [facility] Address [address] [place] [address] Care Team Providers Care Beading Installer Name Role Phone Morgan Marks Primary Care Provider [phone] Encounter Details Date Type Department Care Team (Late st Contact Info) Description 01/22/2025 Results Follow-Up [facility] [address] [place] [phone] Quality Control Microbiologist: Jose Etienne MD [address] [place] [phone] Social History Tobacco Use Types Packs/Day Years [...] Care Team (Late st Contact Info) Description 05/20/2025 2:45 PM EST Office Visit [facility] [address] [phone] Quality Control Microbiologist: Jose Etienne MD [address] [place] [phone] documented as of this encounter Visit Diagnoses Not on filedocumented in this encounter Care Teams Beading Installer Relationship Specialty Start Date End Date SelinaIssa avilaluis Lashawn [address] [place] [phone] PCP - General Internal Medicine 10/22/24 documented as of this encounter
== END 2025-02-05 13:04 | disposition home or self-care (01) ==
LOC: HO.ENCR 12:39
PROVIDERS: PCP Internal Medicine; Visit Provider Student in an Organized Health Care Education/Training Program
DX: E04.1 Nontoxic single thyroid nodule (principal)
CPT/HCPCS: 99213

== ENCOUNTER → 2025-02-05 12:38 | Outpatient (BNVA) | payer OTHER, SELFPAY | PROVIDERS: PCP Internal Medicine; Visit Provider Student in an Organized Health Care Education/Training Program | DX: E04.1 Nontoxic single thyroid nodule (principal) | CPT/HCPCS: 99212 ==